=== PATIENT | male | born 2000 | race Caucasian/White ===

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

== ENCOUNTER 2022-05-20 13:04 | Inpatient (IN) ==
[2022-05-20] MEDS ORDERED: LACTATED RINGER'S 500 ML IV ONE (13:19)
[2022-05-20] MEDS: SODIUM CHLORIDE 0.9% 1000ML 1,000 ML IV SCH ×2 (13:41→14:42)
[2022-05-20] MEDS ORDERED: STAT IV Infusion **Titration per Protocol STA ×2 (14:24→16:41)
[2022-05-20] MEDS ORDERED: PIPERACILLIN/TAZOBACTAM 4.5 GM/120 ML BAG IV ONE (14:25)
[2022-05-20] MEDS ORDERED: LACTATED RINGER'S 1,000 ML IV ONE (14:27)
[2022-05-20 14:32] LABS: Basophils # (auto) 0.07 K/uL (0-0.2); Basophils % (auto) 0.3 %; Eosinophils # (auto) 0.26 K/uL (0-0.50); Eosinophils % (auto) 1.2 %; Hemoglobin 15.4 g/dl (14.0-18.0); Immature Granulocytes # (auto) 0.63 K/uL (0.00-0.02); Lymphocytes # (auto) 0.36 K/uL (1.2-3.4); Lymphocytes % (auto) 1.7 %; Mean Corpuscular Hemoglobin 32.5 pg (25.0-34.0); Mean Corpuscular Volume 92.8 fL (80.0-100.0); Monocytes # (auto) 1.45 K/uL (0.24-0.82); Monocytes % (auto) 6.9 %; Neutrophils # (auto) 18.33 K/uL (1.4-6.5); Neutrophils % (auto) 86.9 %; Platelet Count 166 K/uL (130-400); RDW Coefficient of Variation 12.9 % (11.5-14.5); RDW Standard Deviation 43.9 fL (36.4-46.3); Red Blood Count 4.74 M/uL (4.63-6.08)
[2022-05-20] MEDS: NOREPINEPHRINE/D5W 4 MG/250 ML PLCT IV SCH (14:32)
--- NOTE | 2022-05-20 14:50 | Emergency Department Note ---
Impression & Plan Septic shock, UTI (urinary tract infection), Fecal impaction, RAMON (acute kidney injury), Elevated troponin I level ED Provider Note Provider: Eduard Joyner MD DATE OF SERVICE: 05/20/2022 CHIEF COMPLAINT: Vomiting and diarrhea, weakness, cool extremities HISTORY OF PRESENT ILLNESS: Patient is a 21-year-old gentleman reports distant history as a toddler of constipation presenting with diarrhea starting last evening with persistent vomiting and being unable to sleep. Patient states he feels weak and was lying on his floor at home according to relative present. Patient denies syncope. Patient reports some rectal discomfort but denies other pain at this time including abdominal pain. Denies suspect food intake. Family members have had a bit of a head cold recently but he denies significant sore throat or nasal congestion. No fevers reported. REVIEW OF SYSTEMS: A total of 10 review of systems was obtained and negative except as stated above in the HPI. PAST MEDICAL HISTORY: As noted above MEDICATIONS: None reported SOCIAL HISTORY: Works at a restaurant PHYSICAL EXAM: GENERAL: alert and oriented on the stretcher appears fatigued. Head: normocephalic and atraumatic EYES: No injection, discharge or icterus. PERRL NECK: Trachea midline. Supple. ENT: Mucous membranes moist and slightly dusky. LUNGS: Airway patent. No retractions. Breath sounds clear HEART: Regular tachycardiac rate and rhythm. ABDOMEN: Soft and non-tender, without guarding or rebound. BACK: No bilateral flank tenderness. SKIN: Mildly cold and mottled distal extremities of the hands and feet. EXTREMITIES: Without swelling or tenderness NEUROLOGICAL: No focal deficits. No aphasia. No facial droop or slurred speech. EK bpm sinus tachycardia. No PVC or PAC. No acute ST segment elevation or depression with QTC 395. CONTINUOUS CARDIAC MONITORING: was ordered and showed a heart rate of 100s-140s bpm in sinus tachycardia Patient's laboratory studies and imaging reviewed. Differential includes Appendicitis, testicular torsion, infections, diverticulitis, UTI, obstruction, mesenteric ischemia, aortic pathology, inflammatory bowel disease, renal colic, PUD, pancreatitis, biliary pathology, hernia, volvulus, constipation, as well as other pathologies. IMPRESSION/MEDICAL DECISION MAKING: Patient describes gastroenteritis type symptoms. Some low blood pressure here as well as tachycardic with some possible evidence of decreased perfusion in the distal periphery of the extremities. Immediately 2 IVs were placed and IV fluid bolus was ordered. Question if he is significantly dehydrated. No fevers or trauma reported. Benign abdomen on exam without significant tenderness. Patient afebrile but having some rigors and feels quite cold. Warm drinks were transitioned to Courtney hugger. Later stopped as he developed a fever. Additional IV fluid was given and given his lack of response to hypotension with this was started on peripheral vasopressor -- Levophed drip. Given empiric broad- spectrum Zosyn. Blood work showed evidence of leukocytosis. Does not appear to be SVT but a sinus tachycardia. Question possible intra-abdominal process versus infectious process causing this. Procal >200. SPO2 is 100% and swelling with some dusky extremities and slight duskiness of the lips believe this is more due to perfusion than hypoxia. Doubt methemoglobinemia. Chest x-ray appears clear. COVID-negative. Chemistries finally returned showing mild hyponatremia however significant renal dysfunction with elevated lactate and low magnesium. AST and ALT mildly elevated. Troponin somewhat elevated likely secondary to demand rather than true ACS given the clin ical picture. CRP is elevated. CT scan was changed to noncontrast. Patient will receive 2 L of lactated Ringer's and 2 L of normal saline. Updated patient at bedside. And with his significant stool ball likely causing some stercoral proctitis likely contributing to his symptoms. No free air reported on CT. Blood pressure and heart rate did begin to prove here with the titration of pressor. Transferred to the ICU for further care and seen by the ICU attending here in the emergency department. Family and patient updated at bedside. Discussed with the gastroenterology team as well who recommended the patient have some disimpaction as well as enemas to help with his stool burden. Relayed to the ICU team as the patient was imminently being transferred there. DIAGNOSIS: Septic shock, acute UTI, acute renal failure, elevated lactate, elevated troponin DISPOSITION: Hospitalist will evaluate Patient was agreeable with this plan Critical Care I have personally spent 76 minutes of critical care time in the direct management of this patient. This includes bedside care, interpretation of diagnostic studies, and testing, discussion with consultants, patient, and family members, and other required patient management activities. These 76 minutes is in excess of all separately billable procedures. Past Med/Surg History Medical History Diarrhea No pertinent family history Surgical History No pertinent past surgical history Social History Smoking Status: Current every day smoker Tobacco Type: E-cigarettes / Vaping Hx Alcohol Use: No Preferred Language: Liberian Communication Ability: Effective Vending Machine Refiller Required: No Beliefs That Will Affect Care: None Current Living Situation: Family Feels Safe at Home: Yes Safety Concerns: Feels Safe At This Time Assistive Devices: None Allergies Allergies Allergy/AdvReac Type Severity Reaction Status Date / Time Sulfa (Sulfonamide Allergy Rash Verified 05/20/22 16:38 Antibiotics) Home Meds Home Medications Medication Instructions Recorded Confirmed polyethylene glycol 3350 17 gram 17 g PO DAILY PRN Constipation 05/20/22 05/20/22 oral powder packet (Miralax) Results & Data (ED) Vital Signs Vital Signs - 24 hr 05/20/22 13:08 05/20/22 13:42 05/20/22 16:10 Temperature 36.4 C L Temperature Source Oral Pulse Rate 136 H Pulse Rate [Finger] 112 H Pulse Rate from SpO2 Sensor Pulse Rhythm Regular Pulse Strength Normal Respiratory Rate 16 16 Respiratory Effort / Characteristics Non-Labored Spontaneous Respiratory Depth Normal Respiratory Pattern Regular Blood Pressure 78/46 L Blood Pressure [Right Arm] 88/35 L Blood Pressure Mean 56 Blood Pressure Mean [Right Arm] 52 Blood Pressure Position Sitting Pulse Oximetry 95 100 Oxygen Delivery Method Room Air Room Air Room Air Sepsis Recent Fever Within 48 Hours No Sepsis New/Unexplained Change in Mental Status No Sepsis Action Taken by Nursing No Action Required 05/20/22 16:26 05/20/22 16:43 05/20/22 14:40 Temperature 39.2 C H Temperature Source Oral Pulse Rate 131 H Pulse Rate [Finger] 119 H 107 H Pulse Rate from SpO2 Sensor 128 H Pulse Rhythm Pulse Strength Respiratory Rate 38 H 30 H 31 H Respiratory Effort / Characteristics Respiratory Depth Respiratory Pattern Blood Pressure Blood Pressure [Right Arm] 89/38 L 89/46 L Blood Pressure Mean Blood Pressure Mean [Right Arm] 55 60 Blood Pressure Position Pulse Oximetry 100 100 Oxygen Delivery Method Room Air Room Air Room Air Sepsis Recent Fever Within 48 Hours Sepsis New/Unexplained Change in Mental Status Sepsis Action Taken by Nursing 05/20/22 14:41 05/20/22 14:41 05/20/22 14:50 Temperature Temperature Source Pulse Rate 130 H Pulse Rate [Finger] Pulse Rate from SpO2 Sensor 129 H Pulse Rhythm Pulse Strength Respiratory Rate 33 H Respiratory Effort / Characteristics Respiratory Depth Respiratory Pattern Blood Pressure 93/36 L 84/37 L Blood Pressure [Right Arm] Blood Pressure Mean 55 52 Blood Pressure Mean [Right Arm] Blood Pressure Position Pulse Oximetry 100 Oxygen Delivery Method Room Air Room Air Room Air Sepsis Recent Fever Within 48 Hours Sepsis New/Unexplained Change in Mental Status Sepsis Action Taken by Nursing 05/20/22 14:50 05/20/22 14:58 05/20/22 14:58 Temperature Temperature Source Pulse Rate 126 H 130 H Pulse Rate [Finger] Pulse Rate from SpO2 Sensor 124 H 132 H Pulse Rhythm Pulse Strength Respiratory Rate 22 33 H Respiratory Effort / Characteristics Respiratory Depth Respiratory Pattern Blood Pressure 112/59 L Blood Pressure [Right Arm] Blood Pressure Mean 76 Blood Pressure Mean [Right Arm] Blood Pressure Position Pulse Oximetry 100 100 Oxygen Delivery Method Room Air Room Air Room Air Sepsis Recent Fever Within 48 Hours Sepsis New/Unexplained Change in Mental Status Sepsis Action Taken by Nursing 05/20/22 15:00 05/20/22 15:10 05/20/22 15:15 Temperature Temperature Source Pulse Rate 143 H 123 H Pulse Rate [Finger] Pulse Rate from SpO2 Sensor 141 H 123 H Pulse Rhythm Pulse Strength Respiratory Rate 37 H 29 H Respiratory Effort / Characteristics Respiratory Depth Respiratory Pattern Blood Pressure 76/36 L Blood Pressure [Right Arm] Blood Pressure Mean 49 Blood Pressure Mean [Right Arm] Blood Pressure Position Pulse Oximetry 98 100 Oxygen Delivery Method Room Air Room Air Room Air Sepsis Recent Fever Within 48 Hours Sepsis New/Unexplained Change in Mental Status Sepsis Action Taken by Nursing 05/20/22 15:15 05/20/22 15:18 05/20/22 15:18 Temperature Temperature Source Pulse Rate 121 H 129 H Pulse Rate [Finger] Pulse Rate from SpO2 Sensor 121 H 128 H Pulse Rhythm Pulse Strength Respiratory Rate 29 H 30 H Respiratory Effort / Characteristics Respiratory Depth Respiratory Pattern Blood Pressure 91/42 L Blood Pressure [Right Arm] Blood Pressure Mean 58 Blood Pressure Mean [Right Arm] Blood Pressure Position Pulse Oximetry 100 98 Oxygen Delivery Method Room Air Room Air Room Air Sepsis Recent Fever Within 48 Hours Sepsis New/Unexplained Change in Mental Status Sepsis Action Taken by Nursing 05/20/22 15:20 05/20/22 15:23 05/20/22 15:23 Temperature Temperature Source Pulse Rate 136 H 131 H Pulse Rate [Finger] Pulse Rate from SpO2 Sensor 133 H 130 H Pulse Rhythm Pulse Strength Respiratory Rate 19 24 Respiratory Effort / Characteristics Respiratory Depth Respiratory Pattern Blood Pressure 81/39 L Blood Pressure [Right Arm] Blood Pressure Mean 53 Blood Pressure Mean [Right Arm] Blood Pressure Position Pulse Oximetry 100 100 Oxygen Delivery Method Room Air Room Air Room Air Sepsis Recent Fever Within 48 Hours Sepsis New/Unexplained Change in Mental Status Sepsis Action Taken by Nursing 05/20/22 15:30 05/20/22 15:30 05/20/22 15:57 Temperature Temperature Source Pulse Rate 127 H 122 H Pulse Rate [Finger] Pulse Rate from SpO2 Sensor 128 H Pulse Rhythm Pulse Strength Respiratory Rate 26 H 33 H Respiratory Effort / Characteristics Respiratory Depth Respiratory Pattern Blood Pressure 70/40 L Blood Pressure [Right Arm] Blood Pressure Mean 50 Blood Pressure Mean [Right Arm] Blood Pressure Position Pulse Oximetry 100 Oxygen Delivery Method Room Air Room Air Room Air Sepsis Recent Fever Within 48 Hours Sepsis New/Unexplained Change in Mental Status Sepsis Action Taken by Nursing 05/20/22 16:00 05/20/22 16:05 05/20/22 16:05 Temperature Temperature Source Pulse Rate 124 H 121 H Pulse Rate [Finger] Pulse Rate from SpO2 Sensor 122 H Pulse Rhythm Pulse Strength Respiratory Rate 26 H 33 H Respiratory Effort / Characteristics Respiratory Depth Respiratory Pattern Blood Pressure 88/35 L Blood Pressure [Right Arm] Blood Pressure Mean 52 Blood Pressure Mean [Right Arm] Blood Pressure Position Pulse Oximetry 99 Oxygen Delivery Method Room Air Room Air Room Air Sepsis Recent Fever Within 48 Hours Sepsis New/Unexplained Change in Mental Status Sepsis Action Taken by Nursing 05/20/22 16:10 05/20/22 16:15 05/20/22 16:15 Temperature Temperature Source Pulse Rate 111 H 120 H Pulse Rate [Finger] Pulse Rate from SpO2 Sensor 111 H 119 H Pulse Rhythm Pulse Strength Respiratory Rate 30 H 36 H Respiratory Effort / Characteristics Respiratory Depth Respiratory Pattern Blood Pressure 90/50 L Blood Pressure [Right Arm] Blood Pressure Mean 63 Blood Pressure Mean [Right Arm] Blood Pressure Position Pulse Oximetry 100 99 Oxygen Delivery Method Room Air Room Air Room Air Sepsis Recent Fever Within 48 Hours Sepsis New/Unexplained Change in Mental Status Sepsis Action Taken by Nursing 05/20/22 16:20 05/20/22 16:25 05/20/22 16:25 Temperature Temperature Source Pulse Rate 117 H 118 H Pulse Rate [Finger] Pulse Rate from SpO2 Sensor 117 H 118 H Pulse Rhythm Pulse Strength Respiratory Rate 15 28 H Respiratory Effort / Characteristics Respiratory Depth Respiratory Pattern Blood Pressure 89/38 L Blood Pressure [Right Arm] Blood Pressure Mean 55 Blood Pressure Mean [Right Arm] Blood Pressure Position Pulse Oximetry 100 100 Oxygen Delivery Method Room Air Room Air Room Air Sepsis Recent Fever Within 48 Hours Sepsis New/Unexplained Change in Mental Status Sepsis Action Taken by Nursing 05/20/22 16:28 05/20/22 16:28 05/20/22 16:30 Temperature Temperature Source Pulse Rate 119 H Pulse Rate [Finger] Pulse Rate from SpO2 Sensor 117 H Pulse Rhythm Pulse Strength Respiratory Rate 23 Respiratory Effort / Characteristics Respiratory Depth Respiratory Pattern Blood Pressure 93/44 L 87/43 L Blood Pressure [Right Arm] Blood Pressure Mean 60 57 Blood Pressure Mean [Right Arm] Blood Pressure Position Pulse Oximetry 100 Oxygen Delivery Method Room Air Room Air Room Air Sepsis Recent Fever Within 48 Hours Sepsis New/Unexplained Change in Mental Status Sepsis Action Taken by Nursing 05/20/22 16:30 05/20/22 16:40 05/20/22 16:42 Temperature Temperature Source Pulse Rate 120 H 120 H 112 H Pulse Rate [Finger] Pulse Rate from SpO2 Sensor 119 H 120 H 111 H Pulse Rhythm Pulse Strength Respiratory Rate 26 H 35 H 34 H Respiratory Effort / Characteristics Respiratory Depth Respiratory Pattern Blood Pressure Blood Pressure [Right Arm] Blood Pressure Mean Blood Pressure Mean [Right Arm] Blood Pressure Position Pulse Oximetry 100 100 100 Oxygen Delivery Method Room Air Room Air Room Air Sepsis Recent Fever Within 48 Hours Sepsis New/Unexplained Change in Mental Status Sepsis Action Taken by Nursing 05/20/22 16:42 05/20/22 16:45 05/20/22 16:45 Temperature Temperature Source Pulse Rate 107 H Pulse Rate [Finger] Pulse Rate from SpO2 Sensor 108 H Pulse Rhythm Pulse Strength Respiratory Rate 31 H Respiratory Effort / Characteristics Respiratory Depth Respiratory Pattern Blood Pressure 89/46 L 96/52 L Blood Pressure [Right Arm] Blood Pressure Mean 60 66 Blood Pressure Mean [Right Arm] Blood Pressure Position Pulse Oximetry 100 Oxygen Delivery Method Room Air Room Air Room Air Sepsis Recent Fever Within 48 Hours Sepsis New/Unexplained Change in Mental Status Sepsis Action Taken by Nursing 05/20/22 16:50 Temperature Temperature Source Pulse Rate 107 H Pulse Rate [Finger] Pulse Rate from SpO2 Sensor 107 H Pulse Rhythm Pulse Strength Respiratory Rate 28 H Respiratory Effort / Characteristics Respiratory Depth Respiratory Pattern Blood Pressure Blood Pressure [Right Arm] Blood Pressure Mean Blood Pressure Mean [Right Arm] Blood Pressure Position Pulse Oximetry 100 Oxygen Delivery Method Room Air Sepsis Recent Fever Within 48 Hours Sepsis New/Unexplained Change in Mental Status Sepsis Action Taken by Nursing Laboratory Data Result diagrams: 05/20/22 14:21 05/20/22 14:21 Lab Results 05/20/22 05/20/22 05/20/22 Range/Units 12:35 14:21 14:21 WBC 21.10 H (4.8-10.8) K/ul RBC 4.74 (4.63-6.08) M/uL Hgb 15.4 (14.0-18.0) g/dl Hct 44.0 (40.1-51.0) % MCV 92.8 (80.0-100.0) fL MCH 32.5 (25.0-34.0) pg MCHC 35.0 (32.0-36.0) g/dL RDW Std Deviation 43.9 (36.4-46.3) fL RDW Coeff of Leena 12.9 (11.5-14.5) % Plt Count 166 (130-400) K/uL MPV 11.0 (9.4-12.4) fL Immature Gran % (Auto) 3.0 % Neut % (Auto) 86.9 % Lymph % (Auto) 1.7 % Bath % (Auto) 6.9 % Eos % (Auto) 1.2 % Baso % (Auto) 0.3 % Neut # (Auto) 18.33 H (1.4-6.5) K/uL Lymph # (Auto) 0.36 L (1.2-3.4) K/uL Bath # (Auto) 1.45 H (0.24-0.82) K/uL Eos # (Auto) 0.26 (0-0.50) K/uL Baso # (Auto) 0.07 (0-0.2) K/uL Immature Gran # (Auto) 0.63 H (0.00-0.02) K/uL ESR (0-15) mm/hr VBG pH (7.36-7.41) VBG pCO2 (38-50) mmHg VBG pO2 mmHg VBG HCO3 mmol/L VBG O2 Saturation % VBG Base Excess mEq/L Sodium 133 L (136-145) mmol/L Potassium 4.8 (3.5-5.1) mmol/L Chloride 101 (98-107) mmol/L Carbon Dioxide 23 (21-32) mmol/L Anion Gap 9 (3-11) BUN 38 H (6-23) mg/dl Creatinine 2.61 H (0.6-1.4) mg/dl Est Cr Clr Drug Dosing 36.5 ml/min Est GFR ( Amer) 39.2 ml/min Est GFR (Non-Af Amer) 33.8 ml/min BUN/Creatinine Ratio 14.6 (10-20) Glucose 110 H (70-99(Fasting)) mg/dl Lactate (0.4-2.0) mmol/L Calcium 7.7 L (8.5-10.1) mg/dl Magnesium 1.4 L (1.7-2.4) mg/dl Total Bilirubin 3.5 H (0.2-1.0) mg/dl Direct Bilirubin 1.0 H (0-0.2) mg/dl AST 132 H (13-39) U/L ALT 103 H (7-52) U/L Alkaline Phosphatase 68 (34-104) U/L Troponin I High Sens 134.7 H* (0-20) pg/ml C-Reactive Protein 8.37 H (0-0.5) mg/dl Total Protein 5.6 L (6.0-8.3) gm/dl Albumin 3.4 (3.4-5.0) gm/dl Lipase (11-82) U/L Procalcitonin (0-0.5) ng/ml Random Cortisol mcg/dl Urine Color Urine Appearance (Clear) Urine pH (4.5-7.5) Ur Specific [place] (1.000-1.030) Urine Protein (Negative) Urine Glucose (UA) (Negative) Urine Ketones (Negative) Urine Blood (Negative) Urine Nitrite (Negative) Urine Bilirubin (Negative) Urine Urobilinogen (Negative) Ur Leukocyte Esterase (Negative) Urine WBC (Auto) (0-5) /hpf Urine RBC (Auto) (0-4) /hpf U Hyaline Cast (Auto) (0-5) /lpf U Epithel Cells (Auto) (0-5) /lpf Urine Bacteria (Auto) (Negative) SARS-CoV-2, RNA, NAAT NEGATIVE (NEGATIVE) 05/20/22 05/20/22 05/20/22 Range/Units 14:21 14:21 14:21 WBC (4.8-10.8) K/ul RBC (4.63-6.08) M/uL Hgb (14.0-18.0) g/dl Hct (40.1-51.0) % MCV (80.0-100.0) fL MCH (25.0-34.0) pg MCHC (32.0-36.0) g/dL RDW Std Deviation (36.4-46.3) fL RDW Coeff of Leena (11.5-14.5) % Plt Count (130-400) K/uL MPV (9.4-12.4) fL Immature Gran % (Auto) % Neut % (Auto) % Lymph % (Auto) % Bath % (Auto) % Eos % (Auto) % Baso % (Auto) % Neut # (Auto) (1.4-6.5) K/uL Lymph # (Auto) (1.2-3.4) K/uL Bath # (Auto) (0.24-0.82) K/uL Eos # (Auto) (0-0.50) K/uL Baso # (Auto) (0-0.2) K/uL Immature Gran # (Auto) (0.00-0.02) K/uL ESR < 1 (0-15) mm/hr VBG pH (7.36-7.41) VBG pCO2 (38-50) mmHg VBG pO2 mmHg VBG HCO3 mmol/L VBG O2 Saturation % VBG Base Excess mEq/L Sodium (136-145) mmol/L Potassium (3.5-5.1) mmol/L Chloride (98-107) mmol/L Carbon Dioxide (21-32) mmol/L Anion Gap (3-11) BUN (6-23) mg/dl Creatinine (0.6-1.4) mg/dl Est Cr Clr Drug Dosing ml/min Est GFR ( Amer) ml/min Est GFR (Non-Af Amer) ml/min BUN/Creatinine Ratio (10-20) Glucose (70-99(Fasting)) mg/dl Lactate 3.5 H* (0.4-2.0) mmol/L Calcium (8.5-10.1) mg/dl Magnesium (1.7-2.4) mg/dl Total Bilirubin (0.2-1.0) mg/dl Direct Bilirubin (0-0.2) mg/dl AST (13-39) U/L ALT (7-52) U/L Alkaline Phosphatase (34-104) U/L Troponin I High Sens (0-20) pg/ml C-Reactive Protein (0-0.5) mg/dl Total Protein (6.0-8.3) gm/dl Albumin (3.4-5.0) gm/dl Lipase (11-82) U/L Procalcitonin > 200.00 H (0-0.5) ng/ml Random Cortisol mcg/dl Urine Color Urine Appearance (Clear) Urine pH (4.5-7.5) Ur Specific [place] (1.000-1.030) Urine Protein (Negative) Urine Glucose (UA) (Negative) Urine Ketones (Negative) Urine Blood (Negative) Urine Nitrite (Negative) Urine Bilirubin (Negative) Urine Urobilinogen (Negative) Ur Leukocyte Esterase (Negative) Urine WBC (Auto) (0-5) /hpf Urine RBC (Auto) (0-4) /hpf U Hyaline Cast (Auto) (0-5) /lpf U Epithel Cells (Auto) (0-5) /lpf Urine Bacteria (Auto) (Negative) SARS-CoV-2, RNA, NAAT (NEGATIVE) 05/20/22 05/20/22 05/20/22 Range/Units 14:21 15:00 16:26 WBC (4.8-10.8) K/ul RBC (4.63-6.08) M/uL Hgb (14.0-18.0) g/dl Hct (40.1-51.0) % MCV (80.0-100.0) fL MCH (25.0-34.0) pg MCHC (32.0-36.0) g/dL RDW Std Deviation (36.4-46.3) fL RDW Coeff of Leena (11.5-14.5) % Plt Count (130-400) K/uL MPV (9.4-12.4) fL Immature Gran % (Auto) % Neut % (Auto) % Lymph % (Auto) % Bath % (Auto) % Eos % (Auto) % Baso % (Auto) % Neut # (Auto) (1.4-6.5) K/uL Lymph # (Auto) (1.2-3.4) K/uL Bath # (Auto) (0.24-0.82) K/uL Eos # (Auto) (0-0.50) K/uL Baso # (Auto) (0-0.2) K/uL Immature Gran # (Auto) (0.00-0.02) K/uL ESR (0-15) mm/hr VBG pH (7.36-7.41) VBG pCO2 (38-50) mmHg VBG pO2 mmHg VBG HCO3 mmol/L VBG O2 Saturation % VBG Base Excess mEq/L Sodium (136-145) mmol/L Potassium (3.5-5.1) mmol/L Chloride (98-107) mmol/L Carbon Dioxide (21-32) mmol/L Anion Gap (3-11) BUN (6-23) mg/dl Creatinine (0.6-1.4) mg/dl Est Cr Clr Drug Dosing ml/min Est GFR ( Amer) ml/min Est GFR (Non-Af Amer) ml/min BUN/Creatinine Ratio (10-20) Glucose (70-99(Fasting)) mg/dl Lactate 3.0 H* (0.4-2.0) mmol/L Calcium (8.5-10.1) mg/dl Magnesium (1.7-2.4) mg/dl Total Bilirubin (0.2-1.0) mg/dl Direct Bilirubin (0-0.2) mg/dl AST (13-39) U/L ALT (7-52) U/L Alkaline Phosphatase (34-104) U/L Troponin I High Sens (0-20) pg/ml C-Reactive Protein (0-0.5) mg/dl Total Protein (6.0-8.3) gm/dl Albumin (3.4-5.0) gm/dl Lipase 11 (11-82) U/L Procalcitonin (0-0.5) ng/ml Random Cortisol mcg/dl Urine Color [place] Urine Appearance Cloudy A (Clear) Urine pH 5.0 (4.5-7.5) Ur Specific [place] 1.015 (1.000-1.030) Urine Protein 1+ H (Negative) Urine Glucose (UA) Negative (Negative) Urine Ketones Negative (Negative) Urine Blood Negative (Negative) Urine Nitrite Positive A (Negative) Urine Bilirubin 1+ H (Negative) Urine Urobilinogen Negative (Negative) Ur Leukocyte Esterase 2+ H (Negative) Urine WBC (Auto) 10-30 H (0-5) /hpf Urine RBC (Auto) 0-4 (0-4) /hpf U Hyaline Cast (Auto) 10-30 H (0-5) /lpf U Epithel Cells (Auto) 5-10 H (0-5) /lpf Urine Bacteria (Auto) 4+ H (Negative) SARS-CoV-2, RNA, NAAT (NEGATIVE) 05/20/22 05/20/22 Range/Units 16:26 16:27 WBC (4.8-10.8) K/ul RBC (4.63-6.08) M/uL Hgb (14.0-18.0) g/dl Hct (40.1-51.0) % MCV (80.0-100.0) fL MCH (25.0-34.0) pg MCHC (32.0-36.0) g/dL RDW Std Deviation (36.4-46.3) fL RDW Coeff of Leena (11.5-14.5) % Plt Count (130-400) K/uL MPV (9.4-12.4) fL Immature Gran % (Auto) % Neut % (Auto) % Lymph % (Auto) % Bath % (Auto) % Eos % (Auto) % Baso % (Auto) % Neut # (Auto) (1.4-6.5) K/uL Lymph # (Auto) (1.2-3.4) K/uL Bath # (Auto) (0.24-0.82) K/uL Eos # (Auto) (0-0.50) K/uL Baso # (Auto) (0-0.2) K/uL Immature Gran # (Auto) (0.00-0.02) K/uL ESR (0-15) mm/hr VBG pH 7.32 L (7.36-7.41) VBG pCO2 42 (38-50) mmHg VBG pO2 23 mmHg VBG HCO3 22 mmol/L VBG O2 Saturation < 60.0 % VBG Base Excess -4.3 mEq/L Sodium (136-145) mmol/L Potassium (3.5-5.1) mmol/L Chloride (98-107) mmol/L Carbon Dioxide (21-32) mmol/L Anion Gap (3-11) BUN (6-23) mg/dl Creatinine (0.6-1.4) mg/dl Est Cr Clr Drug Dosing ml/min Est GFR ( Amer) ml/min Est GFR (Non-Af Amer) ml/min BUN/Creatinine Ratio (10-20) Glucose (70-99(Fasting)) mg/dl Lactate (0.4-2.0) mmol/L Calcium (8.5-10.1) mg/dl Magnesium (1.7-2.4) mg/dl Total Bilirubin (0.2-1.0) mg/dl Direct Bilirubin (0-0.2) mg/dl AST (13-39) U/L ALT (7-52) U/L Alkaline Phosphatase (34-104) U/L Troponin I High Sens (0-20) pg/ml C-Reactive Protein (0-0.5) mg/dl Total Protein (6.0-8.3) gm/dl Albumin (3.4-5.0) gm/dl Lipase (11-82) U/L Procalcitonin (0-0.5) ng/ml Random Cortisol 58.44 mcg/dl Urine Color Urine Appearance (Clear) Urine pH (4.5-7.5) Ur Specific [place] (1.000-1.030) Urine Protein (Negative) Urine Glucose (UA) (Negative) Urine Ketones (Negative) Urine Blood (Negative) Urine Nitrite (Negative) Urine Bilirubin (Negative) Urine Urobilinogen (Negative) Ur Leukocyte Esterase (Negative) Urine WBC (Auto) (0-5) /hpf Urine RBC (Auto) (0-4) /hpf U Hyaline Cast (Auto) (0-5) /lpf U Epithel Cells (Auto) (0-5) /lpf Urine Bacteria (Auto) (Negative) SARS-CoV-2, RNA, NAAT (NEGATIVE) Administered Medications Norepinephrine Bitartrate (Levophed/D5w) 4 mg in 250 mls @ 10.706 mls/hr IV .[id number] CARMINE; Protocol Stop: 06/19/22 14:29 Last Titration: 05/20/22 18:51 Dose: 0.08 mcg/kg/min, 17.1 mls/hr Documented By: RAJINDER Co-signed By: JOSHUA Titration: 05/20/22 18:42 Dose: 0.08 mcg/kg/min, 17.1 mls/hr Documented By: Titration: 05/20/22 16:43 Dose: 0.14 mcg/kg/min, 30 mls/hr Documented By: Titration: 05/20/22 16:25 Dose: 0.12 mcg/kg/min, 25.7 mls/hr Documented By: Titration: 05/20/22 15:33 Dose: 0.1 mcg/kg/min, 21.4 mls/hr Documented By: Titration: 05/20/22 15:19 Dose: 0.08 mcg/kg/min, 17.1 mls/hr Documented By: Admin: 05/20/22 14:32 Dose: 0.05 mcg/kg/min, 10.7 mls/hr Documented By: SILVIA Co-signed By: KAROL Vasopressin 20 units/ Sodium (Chloride) 101 mls @ 12.12 mls/hr IV .[id number] CARMINE Stop: 06/19/22 16:44 Last Infusion: 05/20/22 18:51 Dose: 0.04 unit/min, 12.1 mls/hr Documented By: RAJINDER Co-signed By: JOSHUA Admin: 05/20/22 17:49 Dose: 0.04 unit/min, 12.1 mls/hr Documented By: LEIGHTON Co-signed By: SILVIA Acetaminophen (Ofirmev) 65 mls @ 260 mls/hr IV Q6H PRN PRN Reason: Fever Stop: 05/23/22 17:14 Last Infusion: 05/20/22 18:09 Dose: 0 mls/hr Documented By: Admin: 05/20/22 17:46 Dose: 260 mls/hr Documented By: LEIGHTON Parenteral Electrolytes (Normosol-R) 500 mls @ 125 mls/hr IV .Q4H CARMINE Stop: 06/19/22 18:44 Last Admin: 05/20/22 19:00 Dose: 125 mls/hr Documented By: JOSHUA Discontinued Medications Hydrocortisone Sodium Succinate (Hydrocortisone Sod Succinate 100 Mg/2 Ml Vial) 100 mg IV NOW STA Stop: 05/20/22 15:39 Last Admin: 05/20/22 16:20 Dose: 100 mg Documented By: LEIGHTON Sodium Chloride (Nss 1000ml) 1,000 mls @ 999 mls/hr IV .Q1H1M CARMINE Stop: 05/20/22 15:30 Last Infusion: 05/20/22 16:10 Dose: 0 mls/hr Documented By: Admin: 05/20/22 14:42 Dose: 999 mls/hr Documented By: Infusion: 05/20/22 14:42 Dose: 0 mls/hr Documented By: Admin: 05/20/22 13:41 Dose: 999 mls/hr Documented By: SILVIA Lactated Ringer's (Lr) 500 mls @ 999 mls/hr IV .Q31M ONE Stop: 05/20/22 13:49 Last Infusion: 05/20/22 16:10 Dose: 0 mls/hr Documented By: Admin: 05/20/22 15:37 Dose: 999 mls/hr Documented By: SILVIA Piperacillin Sod/Tazobactam Sod (Zosyn) 4.5 gm in 120 mls @ 240 mls/hr IV NOW O NE Stop: 05/20/22 14:54 Last Infusion: 05/20/22 15:05 Dose: 0 mls/hr Documented By: Admin: 05/20/22 14:34 Dose: 240 mls/hr Documented By: SILVIA Lactated Ringer's (Lr) 1,000 mls @ 999 mls/hr IV .Q1H1M ONE Stop: 05/20/22 15:27 Last Infusion: 05/20/22 16:44 Dose: 0 mls/hr Documented By: Admin: 05/20/22 15:37 Dose: 999 mls/hr Documented By: SILVIA Parenteral Electrolytes (Normosol-R) 1,000 mls @ 999 mls/hr IV .Q1H1M ONE Stop: 05/20/22 17:27 Last Infusion: 05/20/22 17:46 Dose: 0 mls/hr Documented By: Admin: 05/20/22 16:43 Dose: 999 mls/hr Documented By: LEIGHTON Miscellaneous (Stat Iv Infusion Titration Per Protocol) 1 each N/A NOW STA Stop: 05/20/22 14:25 Last Admin: 05/20/22 14:39 Dose: Not Given Documented By: SILVIA Imaging Data Radiologist's Impression: Chest X-Ray 05/20/22 13:17 XR chest 1V portable HISTORY: Weakness. Tachycardia. COMPARISON: None. FINDINGS: No pneumothorax. No pleural effusions. The heart is normal in size. The trachea is midline. No acute fractures within the visualized osseous structures. The left lung is clear. Mild interstitial thickening within the right lung base. IMPRESSION: Mild interstitial thickening at the right lung base which could be due to the AP portable technique. A low-grade interstitial pneumonitis is not excluded. This will be better assessed on the same day abdomen and pelvis CT. ACT 112: Negative or not required by law. Electronically signed by: Dalton Drake M.D. 05/20/2022 2:58 PM Abdomen/Pelvis CT 05/20/22 15:[address] WITHOUT CONTRAST CT DOSE: 280.70 mGy.cm HISTORY: Acute nausea with vomiting and hypotension. Elevated LFTs v/d, hypotension, elev wbc, lfts TECHNIQUE: Multiaxial CT images of the abdomen and pelvis were performed without contrast. A dose lowering technique was utilized adhering to the principles of ALARA. COMPARISON STUDY: Chest radiograph of same day FINDINGS: Mild dependent subsegmental bibasilar atelectasis. No pneumatosis or pneumoperitoneum identified. The unenhanced spleen, pancreas and adrenal glands are unremarkable. Hyperdense material is noted within the gallbladder lumen. Equivocal gallbladder wall thickening without distention. The unenhanced liver is within normal limits. Mild bilateral hydroureter ureteronephrosis. No renal or ureteral calculi. Anteriorly displaced urinary bladder with circumferential wall thickening. The prostate measures within the upper limits of normal in size. Aorta and IVC are unremarkable. No lymphadenopathy identified. There is a large stool ball within the rectum measuring over 15 cm in length. The rectum is dilated and distended measuring up to 11 cm transversely. Circumferential wall thickening of the sigmoid and rectum with perirectal inflammatory stranding. Colonic fecal retention. There is a subcentimeter appendicolith present. No appendiceal dilation identified to suggest acute appendicitis. Scattered small bowel air-fluid levels within nondilated dilated loops are likely physiologic. Unremarkable soft tissues. Benign cystic structure of the L5 vertebral body. No acute fracture. IMPRESSION: 1. Constipation with marked fecal retention of the rectum resulting in associated stercoral proctitis. 2. The urinary bladder is displaced anteriorly. Circumferential wall thickening may represent cystitis. Correlate with urinalysis. 3. Mild bilateral hydronephrosis. No urolith. 4. Subcentimeter appendicolith is present. No CT evidence of acute appendicitis. 5. Hyperattenuating material within the gallbladder with equivocal gallbladder wall thickening. Findings could be correlated with ultrasound. 6. Additional findings as above. ACT 112: Negative or not required by law. The above report was generated using voice recognition software. It may contain grammatical, syntax or spelling errors. Electronically signed by: Elvin Terrell M.D. 05/20/2022 4:14 PM Discharge Plan Visit Data Chief Complaint: Abdominal Pain Stated Complaint: ABD PAIN, DIARRHEA ED Provider: Eduard Joyner Discharge Problem: Septic shock, UTI (urinary tract infection), Fecal impaction, RAMON (acute kidney injury), Elevated troponin I level Patient Disposition: Being Evaluated by Hospitalist Condition: Critical Discharge Instructions Interventions: ED Discharge Assessment Last Done: 05/20/22 18:02
--- NOTE | 2022-05-20 14:59 | XRay Report ---
XR chest 1V portable HISTORY: Weakness. Tachycardia. COMPARISON: None. FINDINGS: No pneumothorax. No pleural effusions. The heart is normal in size. The trachea is midline. No acute fractures within the visualized osseous structures. The left lung is clear. Mild interstiti al thickening within the right lung base. IMPRESSION: Mild interstitial thickening at the right lung base which could be due to the AP portable technique. A low-grade interstitial pneumonitis is not excluded. This will be better assessed on the same day ab domen and pelvis CT. ACT 112: Negative or not required by law. Electronically signed by: Dalton Drake M.D. 05/20/2022 2:58 PM
[2022-05-20 15:06] LABS: Albumin Level 3.4 gm/dl (3.4-5.0); BUN Creatinine Ratio 14.6 (10-20); Bilirubin,Total 3.5 mg/dl (0.2-1.0); C Reactive Protein 8.37 mg/dl (0-0.5); Calcium 7.7 mg/dl (8.5-10.1); Creatinine Clr Calc Pharmacy 36.5 ml/min; Est GFR (African American) 39.2 ml/min; Est GFR (Non-African American) 33.8 ml/min; Magnesium 1.4 mg/dl (1.7-2.4); Potassium 4.8 mmol/L (3.5-5.1); Total Protein 5.6 gm/dl (6.0-8.3)
[2022-05-20 15:16] LABS: Troponin I High Sensitivity 134.7 pg/ml (0-20)
[2022-05-20 15:29] LABS: Appearance Urine Cloudy (Clear); Bacteria Urine Automated 4+ (Negative); Blood Urine Negative (Negative); Color Urine Orange; Glucose Urine UA Negative (Negative); Ketones Urine Negative (Negative); Leukocyte Esterase Urine 2+ (Negative); Nitrite Urine Positive (Negative); Protein Urine 1+ (Negative); RBC Urine Automated 0-4 /hpf (0-4); Specific Gravity Urine 1.015 (1.000-1.030); Urobilinogen Urine Negative (Negative)
[2022-05-20] MEDS ORDERED: HYDROCORTISONE SOD SUCCINATE 100 MG/2 ML VIAL IV STA (15:38)
[2022-05-20 15:40] LABS: Bilirubin Urine 1+ (Negative)
--- NOTE | 2022-05-20 16:15 | CT Scan Report ---
ABDOMEN AND PELVIS CT WITHOUT CONTRAST CT DOSE: 280.70 mGy.cm HISTORY: Acute nausea with vomiting and hypotension. Elevated LFTs v/d, hypotension, elev wbc, lfts TECHNIQUE: Multiaxial CT images of the abdomen and pelvis were performed without contrast. A dose lo wering technique was utilized adhering to the principles of ALARA. COMPARISON STUDY: Chest radiograph of same day FINDINGS: Mild dependent subsegmental bibasilar atelectasis. No pneumatosis or pneumoperitoneum ident ified. The unenhanced spleen, pancreas and adrenal glands are unremarkable. Hyperdense material is no connie within the gallbladder lumen. Equivocal gallbladder wall thickening without distention. The unenh anced liver is within normal limits. Mild bilateral hydroureter ureteronephrosis. No renal or ureteral calculi. Anteriorly displaced urina ry bladder with circumferential wall thickening. The prostate measures within the upper limits of nor mal in size. Aorta and IVC are unremarkable. No lymphadenopathy identified. There is a large stool ball within the rectum measuring over 15 cm in length. The rectum is dilated a nd distended measuring up to 11 cm transversely. Circumferential wall thickening of the sigmoid and r ectum with perirectal inflammatory stranding. Colonic fecal retention. There is a subcentimeter appen dicolith present. No appendiceal dilation identified to suggest acute appendicitis. Scattered small b owel air-fluid levels within nondilated dilated loops are likely physiologic. Unremarkable soft tissu es. Benign cystic structure of the L5 vertebral body. No acute fracture. IMPRESSION: 1. Constipation with marked fecal retention of the rectum resulting in associated stercoral proctitis . 2. The urinary bladder is displaced anteriorly. Circumferential wall thickening may represent cystiti s. Correlate with urinalysis. 3. Mild bilateral hydronephrosis. No urolith. 4. Subcentimeter appendicolith is present. No CT evidence of acute appendicitis. 5. Hyperattenuating material within the gallbladder with equivocal gallbladder wall thickening. Findi ngs could be correlated with ultrasound. 6. Additional findings as above. ACT 112: Negative or not required by law. The above report was generated using voice recognition software. It may contain grammatical, syntax o r spelling errors. Electronically signed by: Elvin Terrell M.D. 05/20/2022 4:14 PM
[2022-05-20] MEDS ORDERED: NORMOSOL-R 1,000 ML IV ONE (16:27)
--- NOTE | 2022-05-20 16:28 | Electrocardiogram Report ---
Test Reason : Blood Pressure : / mmHG Vent. Rate : 123 BPM Atrial Rate : 123 BPM P-R Int : 116 ms QRS Dur : 066 ms QT Int : 276 ms P-R-T Axes : 054 063 057 degrees QTc Int : 395 ms Sinus tachycardia Possible Left atrial enlargement Borderline ECG When compared with ECG of 08-JUN-2020 17:38, No significant change was found Confirmed by Cordell aPul ([id number]) on 05/20/2022 4:28:12 PM Referred By: Confirmed By:Cordell Paul
[2022-05-20 16:39] LABS: Base Excess VBG -4.3 mEq/L; HCO3 VBG 22 mmol/L; Oxygen Saturation VBG < 60.0 %; PCO2 VBG 42 mmHg (38-50); PO2 VBG 23 mmHg; pH VBG 7.32 (7.36-7.41)
[2022-05-20] MEDS ORDERED: ACETAMINOPHEN 10MG/ML CUSTOM DOSING (PED, LOW WT) IV PRN (16:42)
--- NOTE | 2022-05-20 17:15 | History & Physical Report ---
Date of Service May 20, 2022 Assessment & Plan (1) Sepsis: (2) Shock circulatory: Plan: Patient is 21 y/o M with PMH ADHD, chronic constipation presented to ER with c/o N/V/D x 1 day. Patient states yesterday started with nausea, vomiting and diarrhea. Denies any vomiting today. Today lethargic and weak, chills. In ER patient hypotensive and tachycardic and was reported to be mottled. Was given 2L LR and 2L NSS with SBPs reported down to 50s and was started on Levophed with SBPs up to 90's. WBC 21, lactate: 3.5, procalcitonin > 200, UA consistent with possible UTI. Negative SARS-CoV-2 NAAT. CXR: Mild interstitial thickening RLL. CT abdomen/pelvis: Constipation with marked fecal retention of rectum with associated stercoral proctitis. Urinary bladder wall thickening. Mild bilateral hydronephrosis, no urolith. No CT evidence of acute appendicitis. Hyperattenuating material within the gallbladder with equivocal gallbladder wall thickening. In ER patient BP improving on Levophed In ER given Zosyn Blood cultures, urine culture pending DDX: UTI, cholecystitis, gastroenteritis, bacteremia Urine drug screen pending Repeat lactate: 3 Patient admitted to ICU ABG pending Further management per machine long goods helper (3) RAMON (acute kidney injury): Plan: BUN: 38, Cr: 2.6 Monitor renal function, avoid nephrotoxic agents when possible (4) Elevated LFTs: Plan: T bili: 3.5, ALT: 132, AST: 103, alk phos: 68. Lipase: 11 May need to consider additional ultrasound gallbladder (5) Elevated troponin I level: Plan: High-sensitivity troponin: 134.7 EKG: Sinus tachycardia, no acute ST elevation noted May be secondary to demand (6) Fecal impaction: Plan: History of chronic constipation CT abdomen pelvis: Significant constipation with fecal retention of rectum ?Reported diarrhea may be secondary to overflow from constipation ER provider reached out to on-call GI who had recommended digital disimpaction and enema DVT Prophylaxis Heparin SQ Full Code as per discussion with pt Reports does not have PCP for routine care Pt was seen and care coordinated with Dr Biswas. See addendum History of Present Illness Chief Complaint: Nausea, diarrhea Primary Care Provider: NO PCP Patient is 21 y/o M with PMH ADHD, chronic constipation presented to ER with c/o N/V/D x 1 day. Patient states yesterday started with nausea, vomiting and diarrhea. Denies any vomiting today. Patient reports was feeling lethargic and weak. His mother is in room and reports that today he was lying on bathroom floor and looked ill so he was brought to ER. Patient reports history of chronic constipation and sometimes uses MiraLAX as needed. He reports his last BM prior to onset of illness yesterday was 2 to 3 days ago. Patient reports feeling cold and having chills. Did not take his temperature at home. Denies hematemesis, melena, hematochezia. Reports some diffuse abdominal discomfort. Patient states couple weeks ago had a cough but has resolved. Denies fever/chills, diaphoresis, VIERA, syncope, vision changes, neck pain, CP, SOB, orthopnea, palpitations, sore throat, choking, otalgia, rhinorrhea, extremity edema, rashes, urinary symptoms. Patient denies drug or alcohol use. Denies recent tr ryanne, ill contacts. In ER patient hypotensive and tachycardic and was reported to be mottled. Was given 2L LR and 2L NSS with SBPs reported down to 50s and was started on L evophed with SBPs up to 90's. WBC 21, lactate: 3.5, procalcitonin > 200, UA consistent with possible UTI. Negative SARS-CoV-2 NAAT. CXR: Mild interstitial thickening RLL. CT abdomen pelvis: Constipation with marked fecal retention of rectum with associated stercoral proctitis. Urinary bladder wall thickening. Mild bilateral hydronephrosis, no urolith. No CT evidence of acute appendicitis. Hyperattenuating material within the gallbladder with equivocal gallbladder wall thickening. Patient admitted to ICU. Allergies Allergy/AdvReac Type Severity Reaction Status Date / Time Sulfa (Sulfonamide Allergy Rash Verified 05/20/22 16:38 Antibiotics) Home Medications Medication Instructions Recorded Confirmed Type polyethylene glycol 3350 17 gram 17 g PO DAILY PRN Constipation 05/20/22 05/20/22 History oral powder packet (Miralax) Past Med/Surg History Medical History ADHD Constipation Diarrhea No pertinent family history Surgical History Hx of tonsillectomy Family History Grandfather (Paternal) Hypertension Social History Smoking Status: Current some day smoker Tobacco Type: E-cigarettes / Vaping Hx Alcohol Use: No Hx Substance Use: No Preferred Language: [place] Communication Ability: Effective Clinical Trials Specialist Required: No Beliefs That Will Affect Care: None Current Living Situation: Family Feels Safe at Home: Yes Safety Concerns: Feels Safe At This Time Assistive Devices: None Review of Systems Review of Systems: All systems reviewed & are unremarkable except as noted in HPI & below Physical Exam Physical Exam: General: +ill appearing young male, WDWN Head: normocephalic, atraumatic Eyes: PERRL, EOM's intact, conjunctiva non-injected, anicteric ENT: normal inspection external ears, nose, mucous membranes dry Neck: supple, trachea midline, non-tender Lungs: clear, no respiratory distress, no wheezing/rhonchi/rales CV: regular rhythm, tachycardia, no murmur, no pretibial edema Abd: normal BS, soft, diffuse tenderness to abdomen without rebound or guarding Ext: +purple discoloration of bilateral hands and feet, no calf tenderness Neuro: A&O x 3, no focal deficits noted, normal affect Skin: warm, dry Results & Data Results & Data ([facility]) Vital Signs (Past 12 Hours) Vital Signs Temp Pulse Pulse Resp BP BP Pulse Ox 05/20/22 16:43 107 H 30 H 89/46 L 100 05/20/22 16:26 39.2 C H 119 H 38 H 89/38 L 100 05/20/22 16:10 112 H 16 88/35 L 100 05/20/22 13:42 05/20/22 13:08 36.4 C L 136 H 16 78/46 L 95 O2 Del Method 05/20/22 16:43 Room Air 05/20/22 16:26 Room Air 05/20/22 16:10 Room Air 05/20/22 13:42 Room Air 05/20/22 13:08 Room Air Laboratory Results Short CBC 05/20/22 05/20/22 Range/Units 14:21 19:30 WBC 21.10 H 24.82 H (4.8-10.8) K/ul Hgb 15.4 15.1 (14.0-18.0) g/dl Hct 44.0 42.4 (40.1-51.0) % Plt Count 166 154 (130-400) K/uL BMP 05/20/22 05/20/22 14:21 19:30 Sodium 133 L 133 L Potassium 4.8 4.7 Chloride 101 104 Carbon Dioxide 23 19 L BUN 38 H 36 H Creatinine 2.61 H 2.08 H D Glucose 110 H 89 Calcium 7.7 L 6.9 L Liver Function 05/20/22 05/20/22 Range/Units 14:21 19:30 Total Bilirubin 3.5 H 4.0 H (0.2-1.0) mg/dl Direct Bilirubin 1.0 H (0-0.2) mg/dl AST 132 H 101 H (13-39) U/L ALT 103 H 88 H (7-52) U/L Alkaline Phosphatase 68 58 (34-104) U/L Albumin 3.4 3.0 L (3.4-5.0) gm/dl Urine 05/20/22 Range/Units 15:00 Urine Color [place] Urine Appearance Cloudy A (Clear) Urine pH 5.0 (4.5-7.5) Ur Specific [place] 1.015 (1.000-1.030) Urine Protein 1+ H (Negative) Urine Glucose (UA) Negative (Negative) Diagnostic Findings Chest X-Ray 05/20/22 13:17 XR chest 1V portable HISTORY: Weakness. Tachycardia. COMPARISON: None. FINDINGS: No pneumothorax. No pleural effusions. The heart is normal in size. The trachea is midline. No acute fractures within the visualized osseous structures. The left lung is clear. Mild interstitial thickening within the right lung base. IMPRESSION: Mild interstitial thickening at the right lung base which could be due to the AP portable technique. A low-grade interstitial pneumonitis is not excluded. This will be better assessed on the same day abdomen and pelvis CT. ACT 112: Negative or not required by law. Electronically signed by: Dalton Drake M.D. 05/20/2022 2:58 PM Abdomen/Pelvis CT 05/20/22 15:[address] WITHOUT CONTRAST CT DOSE: 280.70 mGy.cm HISTORY: Acute nausea with vomiting and hypotension. Elevated LFTs v/d, hypotension, elev wbc, lfts TECHNIQUE: Multiaxial CT images of the abdomen and pelvis were performed without contrast. A dose lowering technique was utilized adhering to the principles of ALARA. COMPARISON STUDY: Chest radiograph of same day FINDINGS: Mild dependent subsegmental bibasilar atelectasis. No pneumatosis or pneumoperitoneum identified. The unenhanced spleen, pancreas and adrenal glands are unremarkable. Hyperdense material is noted within the gallbladder lumen. Equivocal gallbladder wall thickening without distention. The unenhanced liver is within normal limits. Mild bilateral hydroureter ureteronephrosis. No renal or ureteral calculi. Anteriorly displaced urinary bladder with circumferential wall thickening. The prostate measures within the upper limits of normal in size. Aorta and IVC are unremarkable. No lymphadenopathy identified. There is a large stool ball within the rectum measuring over 15 cm in length. The rectum is dilated and distended measuring up to 11 cm transversely. Circumferential wall thickening of the sigmoid and rectum with perirectal inflammatory stranding. Colonic fecal retention. There is a subcentimeter appendicolith present. No appendiceal dilation identified to suggest acute appendicitis. Scattered small bowel air-fluid levels within nondilated dilated loops are likely physiologic. Unremarkable soft tissues. Benign cystic structure of the L5 vertebral body. No acute fracture. IMPRESSION: 1. Constipation with marked fecal retention of the rectum resulting in associated stercoral proctitis. 2. The urinary bladder is displaced anteriorly. Circumferential wall thickening may represent cystitis. Correlate with urinalysis. 3. Mild bilateral hydronephrosis. No urolith. 4. Subcentimeter appendicolith is present. No CT evidence of acute appendicitis. 5. Hyperattenuating material within the gallbladder with equivocal gallbladder wall thickening. Findings could be correlated with ultrasound. 6. Additional findings as above. ACT 112: Negative or not required by law. The above report was generated using voice recognition software. It may contain grammatical, syntax or spelling errors. Electronically signed by: Elvin Terrell M.D. 05/20/2022 4:14 PM Supervising Physician Co-Signing Physician Notes Pt was seen and examined. Agreed with Krysten PA-C exam, assessment and plan. 21 y/o M with PMH ADHD, chronic constipation presented to ER with c/o N/V/D x 1 day. Pt said his symptoms started yesterday where he developed nausea, vomiting and diarrhea. He said that he felt weak and was drowsy. He said that his last BM was about 2 to 3 days. His mother found him on the bathroom floor looking sick and brought him to the ER. Denies any chest pain, palpitation, dizziness and SOB. In the ER he was found to be hypotensive. He received IVF and started on pressors. Lab on admission with WBC 21, lactate: 3.5, procalcitonin, UA consistent with possible UTI. CXR: Mild interstitial thickening RLL. CT abdomen pelvis showed constipation with marked fecal retention of rectum with associated stercoral proctitis. Urinary bladder wall thickening. Mild bilateral hydronephrosis, no urolith. He was received IV Zosyn in the ER and started on pressor. Blood cx and urine cx collected in the ER pending. Continue IV abx and IVF. . ER provider reached out to on-call GI for the fecal retention that recommended digital disimpaction and enema. GI consulted. Will follow Lactic acid, WBC. Pt will be monitor closely in the ICU. MD Zulay
[2022-05-20 17:20] LABS: HCO3 ABG 18 mmol/L (19-24); Oxygen Saturation ABG 97.2 % (90-95); PCO2 ABG 29 mmHg (35-46); PO2 ABG 73 mmHg (80-95); pH ABG 7.39 (7.35-7.45)
[2022-05-20 17:21] LABS: Allen Test Pos (Pos)
[2022-05-20] MEDS: ACETAMINOPHEN 65 ML IV PRN (17:46)
[2022-05-20] MEDS: VASOPRESSIN 20 UNITS in 0.9 % SODIUM CHLORIDE 100 ML IV SCH (17:49)
--- NOTE | 2022-05-20 18:26 | Critical Care Consultation ---
Date of Consultation May 20, 2022 Assessment & Plan (1) RAMON (acute kidney injury): (2) Transaminitis: (3) Shock circulatory: (4) UTI (urinary tract infection): (5) Fecal impaction: (6) ADHD: Plan Chest x-ray 05/17/2022 personally reviewed: Portable film, good respiratory e ffort, bilateral costophrenic and cardiophrenic angles are clean. Reason Critically Ill: 21-year-old male presented to the hospital with complaints of nausea vomiting and diarrhea. Found to be hypotensive with RAMON. Transferred to ICU for further care Neuro - [facility] ICU: Negative Cardiac - --Shock Likely component of dehydration as well as septic Source could be UTI versus GI Continue with antibiotic to cover for gram-negative and anaerobes Patient got total of 4 L IV fluid in the ER Vasopressor support to keep MAP greater than 65 --Elevated troponin Likely type II AR EKG does not show any ST-T wave changes Continue to trend Respiratory - Patient is tachypneic most likely from underlying acidosis and pain No AA gradient on ABG AB.39/29/73 on room air GI - -- Transaminitis Elevated AST ALT along with T bili T bili 3.5 with indirect bilirubin 2.5 Hepatitis panel ordered -- Significant stool impaction with chronic constipation as Will need manual disimpaction Surgery and GI has been consulted by ED Possibility of Hirschsprung disease is there --Diarrhea Is likely from overflow from the fecal impaction RENAL/LYTES - -- RAMON Likely obstructive from the stool impaction pressing on the bladder Follow-up urine lites Monitor BUN/creatinine Avoid nephrotoxic medications Strict ins and outs --Mild hydronephrosis bilaterally Again from stool impaction pressing on the bladder ENDO - ICU hypoglycemia protocol Random cortisol 58 Patient did get 100 mg of hydrocortisone in the ED HEME - Monitor H&H ID - -- Severe Sepsis Source is likely UTI with possible proctocolitis Continue with empiric antibiotic coverage Procalcitonin greater than 200, follow-up blood culture and urine culture COVID-19 NAAT negative --Prophylaxis VTE:Heparin GI: Protonix Lines: Peripheral Diet: N.p.o. Plan: Continue vasopressor support to keep MAP greater than 65 Follow-up LDH and Jorge test Repeat CBC Rheumatoid factor and anti-CCP to be done in the morning, cryoglobulins have been ordered for the purplish discoloration of the extremities Follow-up UDS, serum osmolality and urine osmolality I have personally spent 63 minutes of critical care time in the direct management of this patient. This is a life/limb threatening event. This includes time spent evaluating patient, direct bedside care, chart review, placing orders , interpretation of diagnostic studies, discussion with consultants, patient, and family members, as well as other required patient management activities. This time is exclusive of all separately billable procedures, and teaching time and separate from and in addition to any other critical care service time. History of Present Illness History of Present Illness 21-year-old male presented to the hospital with complaints of vomiting diarrhea and unable to sleep Past medical history: Constipation when he was a child. Dr. Joyner reached out to me given the critical condition of the patient Patient's mother was in the room during examination and interrogation Patient was started on Levophed he was on 0.12 mics at the time of examination with MAP 68. He was saturating 100% on room air. Heart rate in the 110's He denied any issues with breathing. He denied any headache. He stated he is feeling better after coming to the hospital No nausea vomiting in the hospital Denies any burning sensation when he urinates. Never had episodes like this in the past. No fever or chills at home. Denies using antifreeze or trying anything out of the ordinary. There is family history of rheumatoid arthritis in one of the grandmothers. Social history: Does vaping Denies any smoking. Social alcohol. Denies any other illicit drug use. Allergies Allergy/AdvReac Type Severity Reaction Status Date / Time Sulfa (Sulfonamide Allergy Rash Verified 05/20/22 16:38 Antibiotics) Home Medications Medication Instructions Recorded Confirmed Type polyethylene glycol 3350 17 gram 17 g PO DAILY PRN Constipation 05/20/22 05/20/22 History oral powder packet (Miralax) Patient History Medical History (Updated 05/20/22 @ 20:52 by Krysten Angel PA-C) ADHD Constipation Diarrhea No pertinent family history Surgical History (Updated 05/20/22 @ 20:47 by Krysten Angel PA-C) Hx of tonsillectomy Family History (Updated 05/20/22 @ 20:48 by Krysten Schreckengost, PA-C) Grandfather (Paternal) Hypertension Social History (Updated 05/20/22 @ 20:48 by Krysten Angel PA-C) Smoking Status: Current some day smoker Tobacco Type: E-cigarettes / Vaping Hx Alcohol Use: No Hx Substance Use: No Preferred Language: [place] Communication Ability: Effective Technician Support Engineer Required: No Beliefs That Will Affect Care: None Current Living Situation: Family Feels Safe at Home: Yes Safety Concerns: Feels Safe At This Time Assistive Devices: None Review of Systems Review of Systems: All systems reviewed & are unremarkable except as noted in HPI & below Physical Exam Physical Exam: Constitutional: No acute distress HEENT: EOMI, PERRLA Respiratory system: Good air entry bilaterally, no wheeze, no rhonchi, no crackles CVS: S1-S2 positive, no murmurs or gallops, tachycardia Abdomen: Soft, nondistended, decreased bowel sounds, positive mild abdominal tenderness, no rebound Extremities: +2 pulses bilaterally radialis/ dorsalis pedis, no cyanosis, no edema, purple hue of the upper extremities Neuro: Awake alert oriented x3 Psych: Normal mood and affect G/U: No Carlson Skin: no rashes, warm and dry Lymphatic: no cervical or axillary lymphadenopathy Results & Data Results & Data ([facility]) Vital Signs (Past 12 Hours) Vital Signs Temp Pulse Pulse Resp BP BP Pulse Ox 05/20/22 18:10 38.8 C H 98 H 18 109/73 96 05/20/22 18:02 05/20/22 17:50 116 H 23 99 05/20/22 17:45 91/46 L 05/20/22 17:45 121 H 34 H 99 05/20/22 17:40 118 H 33 H 99 05/20/22 17:30 123 H 36 H 98 05/20/22 17:30 90/54 L 05/20/22 17:20 109 H 32 H 100 05/20/22 17:15 85/41 L 05/20/22 17:15 114 H 39 H 100 05/20/22 17:10 119 H 38 H 100 05/20/22 17:00 117 H 30 H 100 05/20/22 17:00 98/59 L 05/20/22 16:50 107 H 28 H 100 05/20/22 16:45 96/52 L 05/20/22 16:45 107 H 31 H 100 05/20/22 16:42 89/46 L 05/20/22 16:42 112 H 34 H 100 05/20/22 16:40 120 H 35 H 100 05/20/22 16:30 120 H 26 H 100 05/20/22 16:30 87/43 L 05/20/22 16:28 93/44 L 05/20/22 16:28 119 H 23 100 05/20/22 16:25 89/38 L 05/20/22 16:25 118 H 28 H 100 05/20/22 16:20 117 H 15 100 05/20/22 16:15 90/50 L 05/20/22 16:15 120 H 36 H 99 05/20/22 16:10 111 H 30 H 100 05/20/22 16:05 88/35 L 05/20/22 16:05 121 H 33 H 99 05/20/22 16:00 124 H 26 H 05/20/22 15:57 122 H 33 H 05/20/22 15:30 127 H 26 H 100 05/20/22 15:30 70/40 L 05/20/22 15:23 131 H 24 100 05/20/22 15:23 81/39 L 05/20/22 15:20 136 H 19 100 05/20/22 15:18 91/42 L 05/20/22 15:18 129 H 30 H 98 05/20/22 15:15 121 H 29 H 100 05/20/22 15:15 76/36 L 05/20/22 15:10 123 H 29 H 100 05/20/22 15:00 143 H 37 H 98 05/20/22 14:58 112/59 L 05/20/22 14:58 130 H 33 H 100 05/20/22 14:50 126 H 22 100 05/20/22 14:50 84/37 L 05/20/22 14:41 130 H 33 H 100 05/20/22 14:41 93/36 L 05/20/22 14:40 131 H 31 H 05/20/22 16:43 107 H 30 H 89/46 L 100 05/20/22 16:26 39.2 C H 119 H 38 H 89/38 L 100 05/20/22 16:10 112 H 16 88/35 L 100 05/20/22 13:42 09/23/22 13:08 36.4 C L 136 H 16 78/46 L 95 O2 Del Method 05/20/22 18:10 Room Air 05/20/22 18:02 Room Air 05/20/22 17:50 Room Air 05/20/22 17:45 Room Air 05/20/22 17:45 Room Air 05/20/22 17:40 Room Air 05/20/22 17:30 Room Air 05/20/22 17:30 Room Air 05/20/22 17:20 Room Air 05/20/22 17:15 Room Air 05/20/22 17:15 Room Air 05/20/22 17:10 Room Air 05/20/22 17:00 Room Air 05/20/22 17:00 Room Air 05/20/22 16:50 Room Air 05/20/22 16:45 Room Air 05/20/22 16:45 Room Air 05/20/22 16:42 Room Air 05/20/22 16:42 Room Air 05/20/22 16:40 Room Air 05/20/22 16:30 Room Air 05/20/22 16:30 Room Air 05/20/22 16:28 Room Air 05/20/22 16:28 Room Air 05/20/22 16:25 Room Air 05/20/22 16:25 Room Air 05/20/22 16:20 Room Air 05/20/22 16:15 Room Air 05/20/22 16:15 Room Air 05/20/22 16:10 Room Air 05/20/22 16:05 Room Air 05/20/22 16:05 Room Air 05/20/22 16:00 Room Air 05/20/22 15:57 Room Air 05/20/22 15:30 Room Air 05/20/22 15:30 Room Air 05/20/22 15:23 Room Air 05/20/22 15:23 Room Air 05/20/22 15:20 Room Air 05/20/22 15:18 Room Air 05/20/22 15:18 Room Air 05/20/22 15:15 Room Air 05/20/22 15:15 Room Air 05/20/22 15:10 Room Air 05/20/22 15:00 Room Air 05/20/22 14:58 Room Air 05/20/22 14:58 Room Air 05/20/22 14:50 Room Air 05/20/22 14:50 Room Air 05/20/22 14:41 Room Air 05/20/22 14:41 Room Air 05/20/22 14:40 Room Air 05/20/22 16:43 Room Air 05/20/22 16:26 Room Air 05/20/22 16:10 Room Air 05/20/22 13:42 Room Air 05/20/22 13:08 Room Air Laboratory Results 05/20/22 14:21 05/20/22 14:21 Coding Level of Care Code Critical Care 1st 30-74 mins Diagnoses RAMON (acute kidney injury) N17.9 Transaminitis R74.01 Shock circulatory R57.9 UTI (urinary tract infection) N39.0 Fecal impaction K56.41 ADHD F90.9 Time Spent (min) 63
[2022-05-20] MEDS ORDERED: ICU PROTOCOL FOR HYPERGLYCEMIA PRN (18:30)
[2022-05-20] MEDS: NORMOSOL-R 500 ML IV SCH (19:00)
[2022-05-20 20:08] LABS: Hematocrit (blood only) 42.4 % (40.1-51.0); Hemoglobin 15.1 g/dl (14.0-18.0); Mean Corpuscular Hemoglobin 32.7 pg (25.0-34.0); Mean Corpuscular Hgb Conc 35.6 g/dL (32.0-36.0); Mean Corpuscular Volume 91.8 fL (80.0-100.0); Mean Platelet Volume 11.4 fL (9.4-12.4); Platelet Count 154 K/uL (130-400); RDW Coefficient of Variation 12.8 % (11.5-14.5); RDW Standard Deviation 43.1 fL (36.4-46.3); Red Blood Count 4.62 M/uL (4.63-6.08); White Blood Count 24.82 K/ul (4.8-10.8)
[2022-05-20 20:32] LABS: Albumin Globulin Ratio 1.5 (0.9-2); BUN Creatinine Ratio 17.3 (10-20); Calcium 6.9 mg/dl (8.5-10.1); Creatinine Clr Calc Pharmacy 45.8 ml/min; Est GFR (African American) 51.6 ml/min; Est GFR (Non-African American) 44.5 ml/min; Potassium 4.7 mmol/L (3.5-5.1)
[2022-05-20 20:52] LABS: Basophils # (auto) 0.06 K/uL (0-0.2); Basophils % (auto) 0.2 %; Dohle Bodies 1+; Echinocytes 1+; Eosinophils # (auto) 0.16 K/uL (0-0.50); Eosinophils % (auto) 0.6 %; Immature Granulocytes % (auto) 6.4 %; Lymphocytes # (auto) 0.54 K/uL (1.2-3.4); Lymphocytes % (auto) 2.2 %; Monocytes % (auto) 3.6 %; Neutrophils # (auto) 21.56 K/uL (1.4-6.5); Toxic Vacuolation 1+
[2022-05-20] MEDS ORDERED: PIPERACILLIN/TAZOBACTAM 3.375 GM in DEXTROSE 5% 100 ML IV ONE (22:00)
[2022-05-21 00:19] LABS: Amphetamines+Metham, Urine Neg (Neg); Barbiturates, Urine Neg (Neg); Benzodiazepine, Urine Neg (Neg); Cocaine, Urine Neg (Neg); MDMA (Ecstacy), Urine Neg (Neg); Methadone, Urine Neg (Neg); Opiate, Urine Neg (Neg); Phencyclidine, Urine Neg (Neg)
[2022-05-21] MEDS ORDERED: NORMOSOL-R 1,000 ML IV ONE ×2 (03:17→09:43)
[2022-05-21 04:44] LABS: Hemoglobin 15.3 g/dl (14.0-18.0); Mean Corpuscular Hemoglobin 32.8 pg (25.0-34.0); Mean Corpuscular Hgb Conc 36.4 g/dL (32.0-36.0); Mean Corpuscular Volume 90.1 fL (80.0-100.0); Mean Platelet Volume 11.2 fL (9.4-12.4); Platelet Count 139 K/uL (130-400); RDW Coefficient of Variation 12.6 % (11.5-14.5); RDW Standard Deviation 41.3 fL (36.4-46.3); Red Blood Count 4.66 M/uL (4.63-6.08); White Blood Count 23.93 K/ul (4.8-10.8)
[2022-05-21] MEDS: PIPERACILLIN/TAZOBACTAM 3.375 GM in DEXTROSE 5% 100 ML IV SCH ×3 (04:45→20:01)
[2022-05-21 05:14] LABS: BUN Creatinine Ratio 18.7 (10-20); Creatinine Clr Calc Pharmacy 50.9 ml/min; Est GFR (African American) 58.7 ml/min; Est GFR (Non-African American) 50.6 ml/min; Magnesium 1.8 mg/dl (1.7-2.4); Phosphorus 3.5 mg/dl (2.5-4.9); Potassium 3.9 mmol/L (3.5-5.1)
[2022-05-21 05:17] LABS: Troponin I High Sensitivity 602.8 pg/ml (0-20)
[2022-05-21 05:24] LABS: Acanthocytes 2+; Basophils # (auto) 0.08 K/uL (0-0.2); Basophils % (auto) 0.3 %; Echinocytes 3+; Eosinophils # (auto) 0.16 K/uL (0-0.50); Eosinophils % (auto) 0.7 %; Immature Granulocytes % (auto) 8.4 %; Lymphocytes # (auto) 0.89 K/uL (1.2-3.4); Lymphocytes % (auto) 3.7 %; Monocytes # (auto) 1.03 K/uL (0.24-0.82); Monocytes % (auto) 4.3 %; Neutrophils # (auto) 19.77 K/uL (1.4-6.5); Neutrophils % (auto) 82.6 %; Toxic Vacuolation 2+
[2022-05-21] MEDS ORDERED: CALCIUM CHLORIDE 10% 1,000 MG in DEXTROSE 5% 50 ML IV STA (06:02)
[2022-05-21] MEDS ORDERED: MAGNESIUM SULFATE / D5W 1 GM/100 ML BAG IV ONE (06:02)
[2022-05-21] MEDS: ACETAMINOPHEN 65 ML IV PRN (06:14)
[2022-05-21 06:26] LABS: Adenovirus F 40/41 PCR Not Detected (NotDetected); Astrovirus PCR Not Detected (NotDetected); Campylobacter PCR Not Detected (NotDetected); Clostridium diff Toxin A/B PCR Not Detected (NotDetected); Cryptosporidium PCR Not Detected (NotDetected); Cyclospora cayetanensis PCR Not Detected (NotDetected); Entamoeba histolytica PCR Not Detected (NotDetected); Enteroaggregative E.coli(EAEC) Not Detected (NotDetected); Enteropathogenic E.coli (EPEC) Not Detected (NotDetected); Enterotoxigenic E.coli (ETEC) Not Detected (NotDetected); Giardia lamblia PCR Not Detected (NotDetected); Norovirus GI/GII PCR Not Detected (NotDetected); Plesiomonas shigelloides PCR Not Detected (NotDetected); Rotavirus A PCR Not Detected (NotDetected); Salmonella PCR Not Detected (NotDetected); Sapovirus PCR Not Detected (NotDetected); Shiga-like Toxin E.coli (STEC) Not Detected (NotDetected); Shigella/Enteroinvasive E.coli Not Detected (NotDetected); Vibrio cholerae PCR Not Detected (NotDetected); Vibrio species PCR Not Detected (NotDetected); Yersinia enterocolitica PCR Not Detected (NotDetected)
[2022-05-21] MEDS: NOREPINEPHRINE/D5W 4 MG/250 ML PLCT IV SCH (07:02)
--- NOTE | 2022-05-21 08:48 | Critical Care Progress Note ---
Date of Service May 21, 2022 Assessment & Plan (1) RAMON (acute kidney injury): (2) Transaminitis: (3) Shock circulatory: (4) UTI (urinary tract infection): (5) Fecal impaction: (6) ADHD: Plan Chest x-ray 05/17/2022 personally reviewed: Portable film, good respiratory effort, bilateral costophrenic and cardiophrenic angles are clean. Reason Critically Ill: 21-year-old male presented to the hospital with complaints of nausea vomiting and diarrhea. Found to be hypotensive with RAMON. Transferred to ICU for further care Neuro - [facility] ICU: Negative Cardiac - --Shock Likely component of dehydration as well as septic Source could be UTI versus GI Continue with antibiotic to cover for gram-negative and anaerobes Patient got total of 4 L IV fluid in the ER Vasopressor support to keep MAP greater than 65 --Elevated troponin Likely type II PA EKG does not show any ST-T wave changes Continue to trend Respiratory - Patient is tachypneic most likely from underlying acidosis and pain No AA gradient on ABG AB.39/29/ on room air GI - -- Transaminitis --> slowly trending down Elevated AST ALT along with T bili T bili 3.5 with indirect bilirubin 2.5 Hepatitis panel ordered -- Significant stool impaction with chronic constipation Continue with enema Surgery and GI has been consulted by ED Possibility of Hirschsprung disease is there --Diarrhea Is likely from overflow from the fecal impaction RENAL/LYTES - -- RAMON --> slowly improving with good urine output Likely obstructive from the stool impaction pressing on the bladder Follow-up urine lites Monitor BUN/creatinine Avoid nephrotoxic medications Strict ins and outs --Mild hydronephrosis bilaterally Again from stool impaction pressing on the bladder ENDO - ICU hypoglycemia protocol Random cortisol 58 Patient did get 100 mg of hydrocortisone in the ED HEME - Monitor H&H ID - -- Severe Sepsis Source is likely UTI with possible proctocolitis Continue with empiric antibiotic coverage Procalcitonin greater than 200, follow-up blood culture and urine culture COVID-19 NAAT negative --Prophylaxis VTE:Heparin GI: Protonix Lines: Peripheral Diet: Clear liquids Plan: In/out: +4 L, urine output 2428 Hypomagnesemia being replaced Patient is still requiring 2 vasopressors. Given the requirement is more than 12 hours I would rather have a central line rather than peripheral access. Risk and benefit of the procedure explained to the patient. He is agreeing into it. Patient did get 1 L Normosol admitted the night. Give another 1 L of Normosol Continue with enemas. UDS negative I have personally spent 38 minutes of critical care time in the direct management of this patient. This is a life/limb threatening event. This includes time spent evaluating patient, direct bedside care, chart review, placing orders, interpretation of diagnostic studies, discussion with consultants, patient, and family members, as well as other required patient management activities. This time is exclusive of all separately billable procedures, and teaching time and separate from and in addition to any other critical care service time. Admission and Anticipated Discharge Date Admission Date: May 20, 2022 Subjective Patient seen and examined at bedside. No acute distress. He was still on 0.08 of Levophed at the time of examination with MAP being in the low 60s. Vasopressin was be added to be started Overnight patient did complain of tingling sensation in the left extremity and a midline was placed in the right arm. Denies any nausea vomiting, no abdominal pain Overall he says that he feels better compared to when he came to the hospital No dizziness. Review of Systems Review of Systems: All systems reviewed & are unremarkable except as noted in Subjective Physical Exam Physical Exam: Constitutional: No acute distress HEENT: EOMI, PERRLA Respiratory system: Good air entry bilaterally, no wheeze, no rhonchi, no crackles CVS: S1-S2 positive, no murmurs or gallops, tachycardia Abdomen: Soft, nondistended, decreased bowel sounds, positive mild abdominal tenderness, no rebound Extremities: +2 pulses bilaterally radialis/ dorsalis pedis, no cyanosis, no edema, purple hue of the upper extremities Neuro: Awake alert oriented x3 Psych: Normal mood and affect G/U: No Carlson Skin: no rashes, warm and dry Lymphatic: no cervical or axillary lymphadenopathy Results & Data Results & Data ([facility]) Vital Signs (Past 12 Hours) Vital Signs Temp Pulse Resp BP Pulse Ox 05/21/22 05:50 37.9 C H 140 H 28 H 100 05/21/22 05:40 122 H 23 100 05/21/22 05:30 127 H 27 H 100 05/21/22 05:20 113 H 24 100 05/21/22 05:10 122 H 23 100 05/21/22 05:07 104/55 L 05/21/22 05:07 117 H 28 H 100 05/21/22 05:01 77/42 L 05/21/22 05:01 115 H 24 100 05/21/22 05:00 119 H 26 H 100 05/21/22 05:00 77/45 L 05/21/22 04:50 125 H 32 H 100 05/21/22 04:41 92/47 L 05/21/22 04:41 130 H 35 H 100 05/21/22 04:00 37.6 C H 138 H 30 H 98 05/21/22 04:00 89/42 L 05/21/22 03:00 134 H 31 H 100 05/21/22 03:00 100/50 L 05/21/22 02:48 97/57 L 05/21/22 02:48 139 H 29 H 100 05/21/22 02:31 137 H 24 100 05/21/22 02:00 37.5 C 129 H 29 H 100 05/21/22 02:00 83/60 L 05/21/22 01:30 82/55 L 05/21/22 01:30 130 H 21 100 05/21/22 01:00 122 H 29 H 100 05/21/22 01:00 93/57 L 05/21/22 00:30 120 H 27 H 100 05/21/22 00:30 89/60 L 05/21/22 00:00 111 H 26 H 100 05/21/22 00:00 36.8 C 82/54 L 05/20/22 23:30 123 H 29 H 100 05/20/22 23:30 104/71 05/20/22 23:01 130 H 32 H 100 05/20/22 23:01 104/60 05/20/22 23:00 129 H 36 H 100 05/20/22 22:32 111 H 38 H 96 05/20/22 22:32 98/78 L 05/20/22 22:06 105 H 33 H 73 L 05/20/22 22:06 123/86 05/20/22 22:01 104 H 31 H 100 05/20/22 22:01 154/112 H 05/20/22 22:00 92 H 28 H 99 05/20/22 21:00 101 H 31 H 98 05/20/22 21:00 126/103 H 05/21/22 00:00 116 H Laboratory Results 05/21/22 04:26 05/21/22 04:26 Coding Level of Care Code Critical Care 1st 30-74 mins Diagnoses RAMON (acute kidney injury) N17.9 Transaminitis R74.01 Shock circulatory R57.9 UTI (urinary tract infection) N39.0 Hematuria presence: without hematuria Urinary tract infection type: site unspecified Fecal impaction K56.41 ADHD F90.9 Time Spent (min) 38 (1) UTI (urinary tract infection) Hematuria presence: without hematuria Urinary tract infection type: site unspecified Qualified Code(s): N39.0 - Urinary tract infection, site not specified
[2022-05-21] MEDS: HEPARIN SOD 5,000 UNIT/0.5 ML VIAL SQ SCH ×2 (09:09→20:01)
--- NOTE | 2022-05-21 10:09 | Procedure Note ---
Procedure Note Date of Service May 21, 2022 Note Procedure: Inserting ultrasound-guided central furnace liner: Dr. Kimberly Newell Indication: Hypotension Consent: Signed by patient and verified with timeout prior to procedure. Anesthesia: 1% lidocaine without epinephrine local. Procedure: Consent was verified and timeout performed. Appropriate imaging studies were reviewed prior to the procedure. Under aseptic and sterile condition, right IJ vein was accessed under direct ultrasound guidance. Guidewire was confirmed to be within the lumen of vein with the help of ultrasound. Catheter was introduced via Seldinger technique. Guide a wire was removed. Good non-pulsatile blood flow was appreciated from all the ports. The catheter was placed at 16 cm and sut[address] in place. BioPatch was applied to the catheter and a sterile Tegaderm dressing was applied over the catheter with careful attention to sterility. Lung sliding was appreciated post procedure with the help ultrasound. Chest x-ray to follow Patient tolerated the procedure well. Blood loss: Less than 2 cc Complications: None Coding CPT Codes Tubes, Drains, and Vasc Access - Tubes, Drains, and Vasc Access: [id number] Place catheter in vein superior or inferior vena cava ([id number]) Tubes, Drains, and Vasc Access - Tubes, Drains, and Vasc Access: [id number] Ultrasound Guidance For Vascular ([id number]) [facility] [place] Procedure Codes (Charges) Tubes, Drains, and Vasc Access Procedure 1: Tubes, Drains, and Vasc Access: [id number] Place catheter in vein superior or inferior vena cava Procedure 2: Tubes, Drains, and Vasc Access: [id number] Ultrasound Guidance For Vascular
--- NOTE | 2022-05-21 10:47 | XRay Report ---
XR chest 1V portable HISTORY: 21 years-old Male CVC placement status post placement of a right IJ central venous catheter COMPARISON: Chest radiograph 05/20/2022 TECHNIQUE: Portable AP view of the chest FINDINGS: Cardiac silhouette is enlarged. Right IJ venous catheter is noted with distal tip in the expected loc ation of the inferior SVC. No pneumothorax, pleural effusion, airspace consolidation or overt pulmona ry edema. Bones of the chest appear grossly intact. IMPRESSION: Status post placement of a right IJ central venous catheter with distal tip in the expect ed location of the inferior SVC. No postprocedural pneumothorax. ACT 112: Negative or not required by law. The above report was generated using voice recognition software. It may contain grammatical, syntax o r spelling errors. Electronically signed by: Elvin Terrell M.D. 05/21/2022 10:46 AM
[2022-05-21] MEDS: VASOPRESSIN 20 UNITS in 0.9 % SODIUM CHLORIDE 100 ML IV SCH ×2 (10:53→21:11)
[2022-05-21] MEDS: MINERAL OIL ENEMA 133 ML BTL PR PRN (10:54)
--- NOTE | 2022-05-21 12:22 | Hospitalist Progress Note ---
Date of Service May 21, 2022 Assessment & Plan (1) Sepsis: (2) Shock circulatory: Plan: Patient is 21 y/o M with PMH ADHD, chronic constipation presented to ER with c/o N/V/D x 1 day. Lethargic and weak, chills. Admitted to ICU and resuscitated requiring two pressors for hemodynamic support. Possible GI vs Urine source. Improved on abx. Chronic constipation. Cont current management per ICU (3) RAMON (acute kidney injury): Plan: pre-renal vs ATN in sepsis. Cont current management and monitor BMP daily. (4) Elevated LFTs: Plan: hyperbilirubinemia and elevated LFTs. Nonspecific material in the gallbladder. No RUQ tenderness and n/v has resolved. Monitor bilirubin and LFTs for another day and if still elevated consider investigative imaging to rule out obstructive cause. (5) Elevated troponin I level: Plan: Likely secondary to demand ischemia (6) Fecal impaction: Plan: History of chronic constipation CT abdomen pelvis: Significant constipation with fecal retention of rectum ?Reported diarrhea may be secondary to overflow from constipation ER provider reached out to on-call GI who had recommended digital disimpaction and enema Continues mineral oil enema PRN DVT Prophylaxis Heparin SQ Dispo-current hospital management per ICU while on pressor support. Rekha Carrero DO [facility] Hospitalist Admission and Anticipated Discharge Date Admission Date: May 20, 2022 Subjective 21-year-old man presents with septic shock Today he is awake and mentating well remaining on Levophed and vasopressin for blood pressure support. He denies any nausea vomiting or pain. He reports persistent constipation is an ongoing problem. He denies any recent intercourse and is heterosexual Denies any recent instrumentation via urethra for medical procedures UDS is negative and he denies any smoking, street drug use He feels better than admission. Review of Systems Review of Systems: All systems reviewed negative except as indicated above. Physical Exam Physical Exam: CONSTITUTIONAL: WNWD, vitals as above, generally well- appearing, NAD EYES: normal conjunctivae, no scleral icterus, ENT: external ear and nose normal, MMM, right IJ in place NECK: trachea midline, RESPIRATORY: clear to auscultation bilaterally, no crackles, rales or wheezes, normal respiratory effort CARDIOVASCULAR: regular rate and rhythm, S1 and 2 heard without murmurs, gallops or rubs, no JVD, no peripheral edema, CHEST: inspection of chest was normal GASTROINTESTINAL: soft, nontender, no guarding MUSCULOSKELETAL: strength 5/5 throughout, head is normocephalic and atraumatic, SKIN: warm and dry, linear purple rash on LUE on forearm. There is a slight erythema around the border where the purple stops and this is a well demarcated area. New since blood draw attempts per patient. NEUROLOGIC: CN 2-12 grossly intact, no sensory deficit, normal cognition, normal speech, no tremor PSYCHIATRIC: alert cooperative and oriented to person, place and time. Results & Data Results & Data ([facility]) Vital Signs (Past 12 Hours) Vital Signs Temp Pulse Resp BP BP Pulse Ox 05/21/22 09:54 110/79 05/21/22 09:30 113/79 05/21/22 08:00 37.3 C 05/21/22 10:00 37.1 C 05/21/22 05:50 37.9 C H 140 H 28 H 100 05/21/22 05:40 122 H 23 100 05/21/22 05:30 127 H 27 H 100 05/21/22 05:20 113 H 24 100 05/21/22 05:10 122 H 23 100 05/21/22 05:07 104/55 L 05/21/22 05:07 117 H 28 H 100 05/21/22 05:01 77/42 L 05/21/22 05:01 115 H 24 100 05/21/22 05:00 119 H 26 H 100 05/21/22 05:00 77/45 L 05/21/22 04:50 125 H 32 H 100 05/21/22 04:41 92/47 L 05/21/22 04:41 130 H 35 H 100 05/21/22 04:00 37.6 C H 138 H 30 H 98 05/21/22 04:00 89/42 L 05/21/22 03:00 134 H 31 H 100 05/21/22 03:00 100/50 L 05/21/22 02:48 97/57 L 05/21/22 02:48 139 H 29 H 100 05/21/22 02:31 137 H 24 100 05/21/22 02:00 37.5 C 129 H 29 H 100 05/21/22 02:00 83/60 L 05/21/22 01:30 82/55 L 05/21/22 01:30 130 H 21 100 05/21/22 01:00 122 H 29 H 100 05/21/22 01:00 93/57 L 05/21/22 00:30 120 H 27 H 100 05/21/22 00:30 89/60 L Laboratory Results Short CBC 05/20/22 05/20/22 05/21/22 Range/Units 14:21 19:30 04:26 WBC 21.10 H 24.82 H 23.93 H (4.8-10.8) K/ul Hgb 15.4 15.1 15.3 (14.0-18.0) g/dl Hct 44.0 42.4 42.0 (40.1-51.0) % Plt Count 166 154 139 (130-400) K/uL BMP 05/20/22 05/20/22 05/21/22 14:21 19:30 04:26 Sodium 133 L 133 L 135 L Potassium 4.8 4.7 3.9 Chloride 101 104 104 Carbon Dioxide 23 19 L 23 BUN 38 H 36 H 35 H Creatinine 2.61 H 2.08 H D 1.87 H Glucose 110 H 89 108 H Calcium 7.7 L 6.9 L 7.0 L Liver Function 05/20/22 05/20/22 Range/Units 14:21 19:30 Total Bilirubin 3.5 H 4.0 H (0.2-1.0) mg/dl Direct Bilirubin 1.0 H (0-0.2) mg/dl AST 132 H 101 H (13-39) U/L ALT 103 H 88 H (7-52) U/L Alkaline Phosphatase 68 58 (34-104) U/L Albumin 3.4 3.0 L (3.4-5.0) gm/dl Urine 05/20/22 Range/Units 15:00 Urine Color [place] Urine Appearance Cloudy A (Clear) Urine pH 5.0 (4.5-7.5) Ur Specific [place] 1.015 (1.000-1.030) Urine Protein 1+ H (Negative) Urine Glucose (UA) Negative (Negative) Diagnostic Findings Chest X-Ray 05/21/22 09:52 XR chest 1V portable HISTORY: 21 years-old Male CVC placement status post placement of a right IJ central venous catheter COMPARISON: Chest radiograph 05/20/2022 TECHNIQUE: Portable AP view of the chest FINDINGS: Cardiac silhouette is enlarged. Right IJ venous catheter is noted with distal tip in the expected location of the inferior SVC. No pneumothorax, pleural effusion, airspace consolidation or overt pulmonary edema. Bones of the chest appear grossly intact. IMPRESSION: Status post placement of a right IJ central venous catheter with distal tip in the expected location of the inferior SVC. No postprocedural pneumothorax. ACT 112: Negative or not required by law. The above report was generated using voice recognition software. It may contain grammatical, syntax or spelling errors. Electronically signed by: Elvin Terrell M.D. 05/21/2022 10:46 AM Medications Administered Current Inpatient Medications Heparin Sodium (Porcine) (Heparin Sod 5,000 Unit/0.5 Ml Vial) 5,000 units SQ Q12 CARMINE Stop: 06/20/22 08:59 Last Admin: 05/21/22 09:09 Dose: 5,000 units Norepinephrine Bitartrate (Levophed/D5w) 4 mg in 250 mls @ 10.706 mls/hr IV .[id number] CARMINE; Protocol Stop: 06/19/22 14:29 Last Titration: 05/21/22 09:54 Dose: 0.04 mcg/kg/min, 8.6 mls/hr Vasopressin 20 units/ Sodium (Chloride) 101 mls @ 12.12 mls/hr IV .Q8H20M CARMINE Stop: 06/19/22 16:44 Last Admin: 05/21/22 10:53 Dose: 0.04 unit/min, 12.1 mls/hr Acetaminophen (Ofirmev) 65 mls @ 260 mls/hr IV Q6H PRN PRN Reason: Fever Stop: 05/23/22 17:14 Last Infusion: 05/21/22 06:38 Dose: Infused Piperacillin Sod/Tazobactam (Sod 3.375 gm/ Dextrose) 115 mls @ 28.75 mls/hr IV Q8H CARMINE; Protocol Stop: 05/31/22 03:59 Last Infusion: 05/21/22 08:45 Dose: Infused Mineral Oil (Mineral Oil Enema 133 Ml Btl) 133 ml UT Q8H PRN PRN Reason: Constipation Stop: 06/20/22 08:44 Last Admin: 05/21/22 10:54 Dose: 133 ml Miscellaneous (Icu Protocol For Hyperglycemia) 1 each N/A PRN PRN; Protocol PRN Reason: Hyperglycemia Protocol Stop: 05/22/22 18:29
[2022-05-21] MEDS ORDERED: SODIUM BICARB 8.4% INJ 50 MEQ/50 ML SYR IV ONE (18:30)
[2022-05-22] MEDS: PIPERACILLIN/TAZOBACTAM 3.375 GM in DEXTROSE 5% 100 ML IV SCH (03:58)
[2022-05-22 05:39] LABS: Hematocrit (blood only) 38.8 % (40.1-51.0); Hemoglobin 14.1 g/dl (14.0-18.0); Mean Corpuscular Hemoglobin 32.9 pg (25.0-34.0); Mean Corpuscular Hgb Conc 36.3 g/dL (32.0-36.0); Mean Corpuscular Volume 90.4 fL (80.0-100.0); Mean Platelet Volume 11.6 fL (9.4-12.4); Platelet Count 107 K/uL (130-400); RDW Coefficient of Variation 12.8 % (11.5-14.5); RDW Standard Deviation 42.4 fL (36.4-46.3); Red Blood Count 4.29 M/uL (4.63-6.08); White Blood Count 19.92 K/ul (4.8-10.8)
[2022-05-22 05:40] LABS: Acanthocytes 2+; Basophils # (auto) 0.14 K/uL (0-0.2); Basophils % (auto) 0.7 %; Dohle Bodies 1+; Echinocytes 1+; Eosinophils # (auto) 0.32 K/uL (0-0.50); Eosinophils % (auto) 1.6 %; Immature Granulocytes # (auto) 0.17 K/uL (0.00-0.02); Immature Granulocytes % (auto) 0.9 %; Lymphocytes # (auto) 1.47 K/uL (1.2-3.4); Lymphocytes % (auto) 7.4 %; Monocytes # (auto) 1.54 K/uL (0.24-0.82); Monocytes % (auto) 7.7 %; Neutrophils # (auto) 16.28 K/uL (1.4-6.5); Neutrophils % (auto) 81.7 %; Platelet Estimate Decreased (Normal); Toxic Vacuolation 1+
[2022-05-22] MEDS: NORMOSOL-R 500 ML IV SCH (06:08)
[2022-05-22 06:14] LABS: Albumin Level 2.9 gm/dl (3.4-5.0); Bilirubin Direct 0.5 mg/dl (0-0.2); Bilirubin,Total 1.8 mg/dl (0.2-1.0); Calcium 7.9 mg/dl (8.5-10.1); Creatinine Clr Calc Pharmacy 88.9 ml/min; Est GFR (African American) 100.3 ml/min; Est GFR (Non-African American) 86.5 ml/min; Magnesium 2.2 mg/dl (1.7-2.4); Phosphorus 1.8 mg/dl (2.5-4.9); Potassium 3.7 mmol/L (3.5-5.1); Total Protein 5.1 gm/dl (6.0-8.3)
[2022-05-22] MEDS ORDERED: POTASSIUM PHOS 3 MMOL/1 ML INFUSION IV STA (06:33)
[2022-05-22] MEDS ORDERED: POTASSIUM PHOSPHATE 15 MMOL in SODIUM CHLORIDE 0.9% 250 ML IV ONE (06:45)
[2022-05-22] MEDS ORDERED: NORMOSOL-R 500 ML IV ONE (08:39)
[2022-05-22] MEDS ORDERED: BUTT PASTE (ZINC OXIDE 16%) 171 APPLN/57 GM JAR EXT PRN (08:47)
[2022-05-22] MEDS: HEPARIN SOD 5,000 UNIT/0.5 ML VIAL SQ SCH (08:56)
[2022-05-22] MEDS ORDERED: NORMOSOL-R 1,000 ML IV ONE (09:10)
--- NOTE | 2022-05-22 09:38 | Gastrointestinal Consultation ---
Date of Consultation May 22, 2022 Assessment & Plan (1) Fecal impaction: He does have a fecal impaction and seems to have stercoral inflammation as well. I doubt this is the cause of his sepsis but it is possible. He is receiving mineral oil enemas and that is a good way to get started relief of this. He may well need a digital disimpaction and I have discussed this with his nurse. I would like to do large volume tap water enemas to help break this up but would prefer to have his pressures more stable before his colon gets distended. He may also need colonoscopy prep to get completely cleaned out but again will wait until his pressures are more stable. This is a chronic problem but I can't say it hasn't contributed to his acute issues. On discharge he will need to be at least on miralax daily. Present on Admission?: Yes (2) Elevated LFTs: I suspect these were elevated related to his sepsis. They are getting more towards normal. I don't think further workup needed at this time Present on Admission?: Yes History of Present Illness Reason for Consultation: Fecal impaction Attending Physician: Rekha Carrero, History of Present Illness 21 year old man admitted with signs and symptoms of sepsis requiring pressor support. Etiology of the sepsis is not clear. On admit he had evidence of large fecal impaction on CT scan. He denies chronic symptoms of constipation. He does admit to seeing a GI doctor "when I was a lot younger" for this problem. He says he doesn't know how often he goes to the bathroom but he gets the normal urge and he goes. He never worries about it and he denies any abdominal pain with regards to it. On occasion he does take miralax but he doesn't quantify how often. He "thinks" he may have had a disimpaction in the past but isn't sure. Apparently sister and mother have problems with constipation as well. He is currently off pressors but his blood pressure is still tenuous according to his nurse. He tells me he feels well. Allergies Allergy/AdvReac Type Severity Reaction Status Date / Time Sulfa (Sulfonamide Allergy Rash Verified 05/20/22 16:38 Antibiotics) Home Medications Medication Instructions Recorded Confirmed Type polyethylene glycol 3350 17 gram 17 g PO DAILY PRN Constipation 05/20/22 05/20/22 History oral powder packet (Miralax) Patient History Medical History ADHD Constipation Diarrhea No pertinent family history Surgical History Hx of tonsillectomy Family History Grandfather (Paternal) Hypertension Social History Smoking Status: Current some day smoker Tobacco Type: E-cigarettes / Vaping Hx Alcohol Use: No Hx Substance Use: No Preferred Language: Pakistani Communication Ability: Effective Accounts Payable Technician Required: No Beliefs That Will Affect Care: None Current Living Situation: Family Feels Safe at Home: Yes Safety Concerns: Feels Safe At This Time Assistive Devices: None Review of Systems Review of Systems: All systems reviewed & are unremarkable except as noted in HPI & below Physical Exam Constitutional: WD/WN, vitals as above no acute distress Eyes: PERRL, conjunctivae normal, anicteric sclerae ENMT: external ear and nose normal, oropharynx normal Neck: trachea midline, no thyromegaly Respiratory: normal respiratory effort, lungs clear to auscultation Cardiovascular: RRR, no murmur, no edema Gastrointestinal (Abdomen): normal bowel sounds, soft, nontender, no hepatosplenomegaly Musculoskeletal: Extremities: no cyanosis and no clubbing Skin: no rashes, warm and dry Neurologic: PERRL, EOMI, accommodation nl, no face palsy, no dysarthria Psychiatric: Orientation: alert and oriented x 3 Results & Data ([facility]) Vital Signs (Past 12 Hours) Vital Signs Temp Pulse Resp BP 05/22/22 06:30 118 H 24 05/22/22 06:20 105 H 05/22/22 06:10 95 H 05/22/22 06:00 100 H 05/22/22 06:00 101/57 L 05/22/22 05:50 105 H 25 H 05/22/22 05:40 112 H 25 H 05/22/22 05:30 99 H 05/22/22 05:20 91 H 05/22/22 05:17 88/45 L 05/22/22 05:17 87 21 05/22/22 05:10 93 H 21 05/22/22 05:00 97 H 24 05/22/22 05:00 100/51 L 05/22/22 04:40 103 H 25 H 05/22/22 04:30 103 H 23 05/22/22 04:20 96 H 23 05/22/22 04:10 97 H 20 05/22/22 04:00 103 H 17 05/22/22 04:00 98/48 L 05/22/22 03:50 114 H 21 05/22/22 03:40 109 H 24 05/22/22 03:30 113 H 19 05/22/22 03:20 103 H 20 05/22/22 03:10 99 H 23 05/22/22 03:00 125 H 25 H 05/22/22 03:00 91/57 L 05/22/22 02:50 97 H 22 05/22/22 02:40 109 H 15 05/22/22 02:30 109 H 27 H 05/22/22 02:20 108 H 26 H 05/22/22 02:10 105 H 30 H 05/22/22 02:00 117 H 22 05/22/22 02:00 92/56 L 05/22/22 01:50 114 H 24 05/22/22 01:40 125 H 21 05/22/22 01:30 114 H 27 H 05/22/22 01:20 110 H 25 H 05/22/22 01:10 120 H 20 05/22/22 01:00 105 H 19 05/22/22 01:00 94/57 L 05/22/22 00:50 101 H 22 05/22/22 00:40 121 H 20 05/22/22 00:30 117 H 26 H 05/22/22 00:20 117 H 19 05/22/22 04:09 37.1 C 05/22/22 01:06 37.2 C 05/22/22 00:15 100/50 L 05/22/22 00:15 118 H 25 H 05/22/22 00:10 116 H 23 05/22/22 00:00 111 H 23 05/21/22 23:50 106 H 23 05/21/22 23:40 105 H 23 05/21/22 23:30 102 H 23 05/21/22 23:20 101 H 24 05/21/22 23:10 103 H 24 05/21/22 23:01 99/37 L 05/21/22 23:01 113 H 20 05/21/22 23:00 104 H 24 05/21/22 22:53 107 H 28 H 05/21/22 22:51 111 H 28 H 05/21/22 22:50 120 H 20 05/21/22 22:41 111/76 05/21/22 22:41 119 H 29 H 05/21/22 22:40 120 H 16 05/21/22 22:30 111 H 25 H 05/21/22 22:30 99/61 L 05/21/22 22:20 111 H 25 H 05/21/22 22:20 115/65 05/21/22 22:10 118 H 26 H 05/21/22 22:10 110/63 05/21/22 22:00 114 H 29 H 05/21/22 22:00 108/56 L 05/21/22 21:50 109 H 26 H 05/21/22 21:41 124 H 27 H 05/21/22 21:41 100/60 05/21/22 21:40 118 H 23 05/21/22 21:38 110 H 18 05/21/22 21:31 114 H 24 Laboratory Results 05/22/22 05/22/22 05/21/22 Range/Units 04:57 04:57 18:06 WBC 19.92 H (4.8-10.8) K/ul RBC 4.29 L (4.63-6.08) M/uL Hgb 14.1 (14.0-18.0) g/dl Hct 38.8 L (40.1-51.0) % MCV 90.4 (80.0-100.0) fL MCH 32.9 (25.0-34.0) pg MCHC 36.3 H (32.0-36.0) g/dL RDW Std Deviation 42.4 (36.4-46.3) fL RDW Coeff of Leena 12.8 (11.5-14.5) % Plt Count 107 L (130-400) K/uL MPV 11.6 (9.4-12.4) fL Immature Gran % (Auto) 0.9 % Neut % (Auto) 81.7 % Lymph % (Auto) 7.4 % [place] % (Auto) 7.7 % Eos % (Auto) 1.6 % Baso % (Auto) 0.7 % Neut # (Auto) 16.28 H (1.4-6.5) K/uL Lymph # (Auto) 1.47 (1.2-3.4) K/uL [place] # (Auto) 1.54 H (0.24-0.82) K/uL Eos # (Auto) 0.32 (0-0.50) K/uL Baso # (Auto) 0.14 (0-0.2) K/uL Immature Gran # (Auto) 0.17 H (0.00-0.02) K/uL Toxic Vacuolation 1+ Dohle Bodies 1+ Platelet Estimate Decreased L (Normal) Echinocytes 1+ Acanthocytes (Spur) 2+ Sodium 140 (136-145) mmol/L Potassium 3.7 (3.5-5.1) mmol/L Chloride 109 H (98-107) mmol/L Carbon Dioxide 27 (21-32) mmol/L Anion Gap 4 (3-11) BUN 24 H (6-23) mg/dl Creatinine 1.20 D (0.6-1.4) mg/dl Est Cr Clr Drug Dosing 88.9 ml/min Est GFR ( Amer) 100.3 ml/min Est GFR (Non-Af Amer) 86.5 ml/min BUN/Creatinine Ratio 20.0 (10-20) Glucose 86 (70-99(Fasting)) mg/dl POC Glucose (70-99) mg/dl POC Glucose (other) 82 (70-99) mg/dl Calcium 7.9 L (8.5-10.1) mg/dl Phosphorus 1.8 L D (2.5-4.9) mg/dl Magnesium 2.2 (1.7-2.4) mg/dl Total Bilirubin 1.8 H D (0.2-1.0) mg/dl Direct Bilirubin 0.5 H (0-0.2) mg/dl AST 50 H (13-39) U/L ALT 49 (7-52) U/L Alkaline Phosphatase 40 (34-104) U/L Total Protein 5.1 L (6.0-8.3) gm/dl Albumin 2.9 L (3.4-5.0) gm/dl Rheumatoid Factor Cycl Citrul Peptide IgG ISAAK Screen SS-A/Ro Antibody SS-B/La Antibody Sm (Roy) Antibody [employer] Antibody Scl-70 Scleroderma Ab Anti-ds DNA (Crithidia) Anti-Centromere Ab Complement C3 Complement C4 05/21/22 05/21/22 05/21/22 Range/Units 17:59 12:02 07:21 WBC (4.8-10.8) K/ul RBC (4.63-6.08) M/uL Hgb (14.0-18.0) g/dl Hct (40.1-51.0) % MCV (80.0-100.0) fL MCH (25.0-34.0) pg MCHC (32.0-36.0) g/dL RDW Std Deviation (36.4-46.3) fL RDW Coeff of Leena (11.5-14.5) % Plt Count (130-400) K/uL MPV (9.4-12.4) fL Immature Gran % (Auto) % Neut % (Auto) % Lymph % (Auto) % [place] % (Auto) % Eos % (Auto) % Baso % (Auto) % Neut # (Auto) (1.4-6.5) K/uL Lymph # (Auto) (1.2-3.4) K/uL [place] # (Auto) (0.24-0.82) K/uL Eos # (Auto) (0-0.50) K/uL Baso # (Auto) (0-0.2) K/uL Immature Gran # (Auto) (0.00-0.02) K/uL Toxic Vacuolation Dohle Bodies Platelet Estimate (Normal) Echinocytes Acanthocytes (Spur) Sodium (136-145) mmol/L Potassium (3.5-5.1) mmol/L Chloride (98-107) mmol/L Carbon Dioxide (21-32) mmol/L Anion Gap (3-11) BUN (6-23) mg/dl Creatinine (0.6-1.4) mg/dl Est Cr Clr Drug Dosing ml/min Est GFR ( Amer) ml/min Est GFR (Non-Af Amer) ml/min BUN/Creatinine Ratio (10-20) Glucose (70-99(Fasting)) mg/dl POC Glucose 36 L* (70-99) mg/dl POC Glucose (other) 101 H (70-99) mg/dl Calcium (8.5-10.1) mg/dl Phosphorus (2.5-4.9) mg/dl Magnesium (1.7-2.4) mg/dl Total Bilirubin (0.2-1.0) mg/dl Direct Bilirubin (0-0.2) mg/dl AST (13-39) U/L ALT (7-52) U/L Alkaline Phosphatase (34-104) U/L Total Protein (6.0-8.3) gm/dl Albumin (3.4-5.0) gm/dl Rheumatoid Factor Cycl Citrul Peptide IgG Cancelled ISAAK Screen SS-A/Ro Antibody SS-B/La Antibody Sm (Roy) Antibody [employer] Antibody Scl-70 Scleroderma Ab Anti-ds DNA (Crithidia) Anti-Centromere Ab Complement C3 Complement C4 05/21/22 Range/Units 07:21 WBC (4.8-10.8) K/ul RBC (4.63-6.08) M/uL Hgb (14.0-18.0) g/dl Hct (40.1-51.0) % MCV (80.0-100.0) fL MCH (25.0-34.0) pg MCHC (32.0-36.0) g/dL RDW Std Deviation (36.4-46.3) fL RDW Coeff of Leena (11.5-14.5) % Plt Count (130-400) K/uL MPV (9.4-12.4) fL Immature Gran % (Auto) % Neut % (Auto) % Lymph % (Auto) % [place] % (Auto) % Eos % (Auto) % Baso % (Auto) % Neut # (Auto) (1.4-6.5) K/uL Lymph # (Auto) (1.2-3.4) K/uL [place] # (Auto) (0.24-0.82) K/uL Eos # (Auto) (0-0.50) K/uL Baso # (Auto) (0-0.2) K/uL Immature Gran # (Auto) (0.00-0.02) K/uL Toxic Vacuolation Dohle Bodies Platelet Estimate (Normal) Echinocytes Acanthocytes (Spur) Sodium (136-145) mmol/L Potassium (3.5-5.1) mmol/L Chloride (98-107) mmol/L Carbon Dioxide (21-32) mmol/L Anion Gap (3-11) BUN (6-23) mg/dl Creatinine (0.6-1.4) mg/dl Est Cr Clr Drug Dosing ml/min Est GFR ( Amer) ml/min Est GFR (Non-Af Amer) ml/min BUN/Creatinine Ratio (10-20) Glucose (70-99(Fasting)) mg/dl POC Glucose (70-99) mg/dl POC Glucose (other) (70-99) mg/dl Calcium (8.5-10.1) mg/dl Phosphorus (2.5-4.9) mg/dl Magnesium (1.7-2.4) mg/dl Total Bilirubin (0.2-1.0) mg/dl Direct Bilirubin (0-0.2) mg/dl AST (13-39) U/L ALT (7-52) U/L Alkaline Phosphatase (34-104) U/L Total Protein (6.0-8.3) gm/dl Albumin (3.4-5.0) gm/dl Rheumatoid Factor Pending Cycl Citrul Peptide IgG Pending ISAAK Screen Pending SS-A/Ro Antibody Pending SS-B/La Antibody Pending Sm (Roy) Antibody Pending [employer] Antibody Pending Scl-70 Scleroderma Ab Pending Anti-ds DNA (Crithidia) Pending Anti-Centromere Ab Pending Complement C3 Pending Complement C4 Pending Diagnostic Findings Chest X-Ray 05/20/22 13:17 XR chest 1V portable HISTORY: Weakness. Tachycardia. COMPARISON: None. FINDINGS: No pneumothorax. No pleural effusions. The heart is normal in size. The trachea is midline. No acute fractures within the visualized osseous structures. The left lung is clear. Mild interstitial thickening within the right lung base. IMPRESSION: Mild interstitial thickening at the right lung base which could be due to the AP portable technique. A low-grade interstitial pneumonitis is not excluded. This will be better assessed on the same day abdomen and pelvis CT. ACT 112: Negative or not required by law. Electronically signed by: Dalton Drake M.D. 05/20/2022 2:58 PM Abdomen/Pelvis CT 05/20/22 15:[address] WITHOUT CONTRAST CT DOSE: 280.70 mGy.cm HISTORY: Acute nausea with vomiting and hypotension. Elevated LFTs v/d, hypotension, elev wbc, lfts TECHNIQUE: Multiaxial CT images of the abdomen and pelvis were performed without contrast. A dose lowering technique was utilized adhering to the principles of ALARA. COMPARISON STUDY: Chest radiograph of same day FINDINGS: Mild dependent subsegmental bibasilar atelectasis. No pneumatosis or pneumoperitoneum identified. The unenhanced spleen, pancreas and adrenal glands are unremarkable. Hyperdense material is noted within the gallbladder lumen. Equivocal gallbladder wall thickening without distention. The unenhanced liver is within normal limits. Mild bilateral hydroureter ureteronephrosis. No renal or ureteral calculi. Anteriorly displaced urinary bladder with circumferential wall thickening. The prostate measures within the upper limits of normal in size. Aorta and IVC are unremarkable. No lymphadenopathy identified. There is a large stool ball within the rectum measuring over 15 cm in length. The rectum is dilated and distended measuring up to 11 cm transversely. Circumferential wall thickening of the sigmoid and rectum with perirectal inflammatory stranding. Colonic fecal retention. There is a subcentimeter appendicolith present. No appendiceal dilation identified to suggest acute appendicitis. Scattered small bowel air-fluid levels within nondilated dilated loops are likely physiologic. Unremarkable soft tissues. Benign cystic structure of the L5 vertebral body. No acute fracture. IMPRESSION: 1. Constipation with marked fecal retention of the rectum resulting in associated stercoral proctitis. 2. The urinary bladder is displaced anteriorly. Circumferential wall thickening may represent cystitis. Correlate with urinalysis. 3. Mild bilateral hydronephrosis. No urolith. 4. Subcentimeter appendicolith is present. No CT evidence of acute appendicitis. 5. Hyperattenuating material within the gallbladder with equivocal gallbladder wall thickening. Findings could be correlated with ultrasound. 6. Additional findings as above. ACT 112: Negative or not required by law. The above report was generated using voice recognition software. It may contain grammatical, syntax or spelling errors. Electronically signed by: Elvin Terrell M.D. 05/20/2022 4:14 PM Chest X-Ray 05/21/22 09:52 XR chest 1V portable HISTORY: 21 years-old Male CVC placement status post placement of a right IJ central venous catheter COMPARISON: Chest radiograph 05/20/2022 TECHNIQUE: Portable AP view of the chest FINDINGS: Cardiac silhouette is enlarged. Right IJ venous catheter is noted with distal tip in the expected location of the inferior SVC. No pneumothorax, pleural effusion, airspace consolidation or overt pulmonary edema. Bones of the chest appear grossly intact. IMPRESSION: Status post placement of a right IJ central venous catheter with distal tip in the expected location of the inferior SVC. No postprocedural pneumothorax. ACT 112: Negative or not required by law. The above report was generated using voice recognition software. It may contain grammatical, syntax or spelling errors. Electronically signed by: Elvin Terrell M.D. 05/21/2022 10:46 AM
--- NOTE | 2022-05-22 10:16 | Critical Care Progress Note ---
Date of Service May 22, 2022 Assessment & Plan (1) RAMON (acute kidney injury): (2) Transaminitis: (3) Shock circulatory: (4) UTI (urinary tract infection): (5) Fecal impaction: (6) ADHD: Plan Chest x-ray 05/17/2022 personally reviewed: Portable film, good respiratory effort, bilateral costophrenic and cardiophrenic angles are clean. Reason Critically Ill: 21-year-old male presented to the hospital with complaints of nausea vomiting and diarrhea. Found to be hypotensive with RAMON. Transferred to ICU for further care Neuro - [facility] ICU: Negative Cardiac - --Shock Likely component of dehydration as well as septic Source could be UTI versus GI Continue with antibiotic to cover for gram-negative and anaerobes Patient got total of 4 L IV fluid in the ER Vasopressor support to keep MAP greater than 65 --Elevated troponin Likely type II SC EKG does not show any ST-T wave changes Continue to trend Respiratory - Patient is tachypneic most likely from underlying acidosis and pain No AA gradient on ABG AB.39/29/73 on room air GI - -- Transaminitis --> slowly trending down Elevated AST ALT along with T bili T bili 3.5 with indirect bilirubin 2.5 Hepatitis panel ordered -- Significant stool impaction with chronic constipation Continue with enema Surgery and GI has been consulted by ED Possibility of Hirschsprung disease is there --Diarrhea Is likely from overflow from the fecal impaction RENAL/LYTES - -- RAMON --> improving with good urine output Likely obstructive from the stool impaction pressing on the bladder Monitor BUN/creatinine Avoid nephrotoxic medications Strict ins and outs --Mild hydronephrosis bilaterally Again from stool impaction pressing on the bladder ENDO - ICU hypoglycemia protocol Random cortisol 58 Patient did get 100 mg of hydrocortisone in the ED HEME - --New onset thrombocytopenia Likely from underlying sepsis Hold heparin Continue to monitor Monitor H&H ID - -- Severe Sepsis from UTI E. coli pansensitive Source is likely UTI with possible proctocolitis Continue with empiric antibiotic coverage Procalcitonin greater than 200, follow-up blood culture and urine culture Zosyn changed to Rocephin 05/22/2022 COVID-19 NAAT negative Musculoskeletal - -- Left arm dorsal patch This likely represent ischemia as patient was getting Levophed from that site Will need to continue monitoring Patient has good pulse on the left arm. --Prophylaxis VTE:Heparin on hold GI: Protonix Lines: Peripheral Diet: Clear liquids, advance as tolerated Plan: In/out: - 891. urine output 3089 Pansensitive E. coli in the urine. We will change Zosyn to Rocephin to be given for total of 7-10 days. Patient's blood pressure is still labile. Continue vasopressor support to keep MAP greater than 65 Will give 500 bolus of Normosol followed by 200 mL an hour for 1 more liter. For total of 1.5 L Phosphorus is being replaced. Continue with enemas I have personally spent 33 minutes of critical care time in the direct management of this patient. This is a life/limb threatening event. This includes time spent evaluating patient, direct bedside care, chart review, placing orders, interpretation of diagnostic studies, discussion with consultants, patient, and family members, as well as other required patient management activities. This time is exclusive of all separately billable procedures, and teaching time and separate from and in addition to any other critical care service time. Admission and Anticipated Discharge Date Admission Date: May 20, 2022 Subjective Patient seen and examined at bedside. No acute distress, no adverse events overnight. He was sleeping when I entered the room. His blood pressure was with MAP of 62-63 He has been urinating well He did not have a good appetite. But he would said that he would like to eat more. Denies any nausea vomiting, no shortness of breath, no headache Is having bowel movements with enema which are mostly liquidy. Review of Systems Review of Systems: All systems reviewed & are unremarkable except as noted in Subjective Physical Exam Physical Exam: Constitutional: No acute distress HEENT: EOMI, PERRLA Respiratory system: Good air entry bilaterally, no wheeze, no rhonchi, no crackles CVS: S1-S2 positive, no murmurs or gallops, tachycardia Abdomen: Soft, nondistended, decreased bowel sounds, positive mild abdominal tenderness, no rebound Extremities: +2 pulses bilaterally radialis/ dorsalis pedis, no cyanosis, no edema, purple hue bilateral fingers Neuro: Awake alert oriented x3 Psych: Normal mood and affect G/U: No Carlson Musculoskeletal: Left dorsal arm patch, well demarcated could represent local ischemia of the skin tissue Skin: no rashes, warm and dry Lymphatic: no cervical or axillary lymphadenopathy Results & Data Results & Data ([facility]) Vital Signs (Past 12 Hours) Vital Signs Temp Pulse Resp BP 05/22/22 06:30 118 H 24 05/22/22 06:20 105 H 21 05/22/22 06:10 95 H 24 05/22/22 06:00 100 H 21 05/22/22 06:00 101/57 L 05/22/22 05:50 105 H 25 H 05/22/22 05:40 112 H 25 H 05/22/22 05:30 99 H 22 05/22/22 05:20 91 H 05/22/22 05:17 88/45 L 05/22/22 05:17 87 05/22/22 05:10 93 H 05/22/22 05:00 97 H 24 05/22/22 05:00 100/51 L 05/22/22 04:40 103 H 25 H 05/22/22 04:30 103 H 05/22/22 04:20 96 H 05/22/22 04:10 97 H 20 05/22/22 04:00 103 H 17 05/22/22 04:00 98/48 L 05/22/22 03:50 114 H 21 05/22/22 03:40 109 H 24 05/22/22 03:30 113 H 19 05/22/22 03:20 103 H 20 05/22/22 03:10 99 H 23 05/22/22 03:00 125 H 25 H 05/22/22 03:00 91/57 L 05/22/22 02:50 97 H 05/22/22 02:40 109 H 15 05/22/22 02:30 109 H 27 H 05/22/22 02:20 108 H 26 H 05/22/22 02:10 105 H 30 H 05/22/22 02:00 117 H 22 05/22/22 02:00 92/56 L 05/22/22 01:50 114 H 24 05/22/22 01:40 125 H 21 05/22/22 01:30 114 H 27 H 05/22/22 01:20 110 H 25 H 05/22/22 01:10 120 H 20 05/22/22 01:00 105 H 19 05/22/22 01:00 94/57 L 05/22/22 00:50 101 H 22 05/22/22 00:40 121 H 20 05/22/22 00:30 117 H 26 H 05/22/22 00:20 117 H 19 05/22/22 04:09 37.1 C 05/22/22 01:06 37.2 C 05/22/22 00:15 100/50 L 05/22/22 00:15 118 H 25 H 05/22/22 00:10 116 H 23 05/22/22 00:00 111 H 23 05/21/22 23:50 106 H 23 05/21/22 23:40 105 H 23 05/21/22 23:30 102 H 23 05/21/22 23:20 101 H 24 05/21/22 23:10 103 H 24 05/21/22 23:01 99/37 L 05/21/22 23:01 113 H 20 05/21/22 23:00 104 H 24 05/21/22 22:53 107 H 28 H 05/21/22 22:51 111 H 28 H 05/21/22 22:50 120 H 20 05/21/22 22:41 111/76 05/21/22 22:41 119 H 29 H 05/21/22 22:40 120 H 16 05/21/22 22:30 111 H 25 H 05/21/22 22:30 99/61 L 05/21/22 22:20 111 H 25 H 05/21/22 22:20 115/65 05/21/22 22:10 118 H 26 H 05/21/22 22:10 110/63 Laboratory Results 05/22/22 04:57 05/22/22 04:57 Coding Level of Care Code Critical Care 1st 30-74 mins Diagnoses RAMON (acute kidney injury) N17.9 Transaminitis R74.01 Shock circulatory R57.9 UTI (urinary tract infection) N39.0 Hematuria presence: without hematuria Urinary tract infection type: site unspecified Fecal impaction K56.41 ADHD F90.9 Time Spent (min) 33 (1) UTI (urinary tract infection) Hematuria presence: without hematuria Urinary tract infection type: site unspecified Qualified Code(s): N39.0 - Urinary tract infection, site not specified
[2022-05-22] MEDS ORDERED: cefTRIAXone SODIUM 2,000 MG in DEXTROSE 5% 50 ML IV SCH (12:00)
[2022-05-22] MEDS: MINERAL OIL ENEMA 133 ML BTL PR PRN (13:19)
--- NOTE | 2022-05-22 14:11 | Hospitalist Progress Note ---
Date of Service May 22, 2022 Assessment & Plan (1) Sepsis: (2) Shock circulatory: Plan: Patient is 21 y/o M with PMH ADHD, chronic constipation presented to ER with c/o N/V/D x 1 day. Patient states yesterday started with nausea, vomiting and diarrhea. Denies any vomiting today. Today lethargic and weak, chills. In ER patient hypotensive and tachycardic and was reported to be mottled. Was given 2L LR and 2L NSS with SBPs reported down to 50s and was started on Levophed with SBPs up to 90's. WBC 21, lactate: 3.5, procalcitonin > 200, UA consistent with possible UTI. Negative SARS-CoV-2 NAAT. CXR: Mild interstitial thickening RLL. CT abdomen/pelvis: Constipation with marked fecal retention of rectum with associated stercoral proctitis. Urinary bladder wall thickening. Mild bilateral hydronephrosis, no urolith. No CT evidence of acute appendicitis. Hyperattenuating material within the gallbladder with equivocal gallbladder wall thickening. In ER patient BP improving on Levophed, Vasopressin added in ICU Continued on Zosyn, now switched to ceftriaxone off pressors for 24 hours, downgraded to PCU status. (3) RAMON (acute kidney injury): Plan: Pres-renal azotemia in sepsis. Resolved to baseline after resuscitation. Monitor renal function, avoid nephrotoxic agents when possible (4) Elevated LFTs: Plan: Likely related to shock, improved. Hyperbilirubinemia improved with resuscitation. (5) Elevated troponin I level: Plan: High-sensitivity troponin: 134.7 EKG: Sinus tachycardia, no acute ST elevation noted May be secondary to demand in setting of sepsis. Pt has had no chest pain or ACS symptoms this admission. (6) Fecal impaction: Plan: History of chronic constipation CT abdomen pelvis: Significant constipation with fecal retention of rectum ?Reported diarrhea may be secondary to overflow from constipation GI helping with management of this. Cont enema PRN. Encouraged to ambulate frequently. DVT Prophylaxis Heparin SQ Full Dispo-to PCU. Mom was at bedside and updated her on plan/gave expectations of remaining hospital stay. Rekha Carrero DO [facility] Hospitalist Admission and Anticipated Discharge Date Admission Date: May 20, 2022 Subjective 21 yo M admitted wtih severe constipation and urosepsis off pressors since afternoon of 05/21 Feeling well Overflow diarrhea reported up and out of bed today tolerating clear liquid diet-clears only per GI Review of Systems Review of Systems: All systems reviewed negative except as indicated above. Physical Exam Physical Exam: CONSTITUTIONAL: WNWD, vitals as above, generally well- appearing, NAD EYES: normal conjunctivae, no scleral icterus, ENT: external ear and nose normal, MMM, right IJ in place NECK: trachea midline, RESPIRATORY: clear to auscultation bilaterally, no crackles, rales or wheezes, normal respiratory effort CARDIOVASCULAR: regular rate and rhythm, S1 and 2 heard without murmurs, gallops or rubs, no JVD, no peripheral edema, CHEST: inspection of chest was normal GASTROINTESTINAL: soft, nontender, no guarding MUSCULOSKELETAL: strength 5/5 throughout, head is normocephalic and atraumatic, SKIN: warm and dry, linear purple rash on LUE on forearm. There is a slight erythema around the border where the purple stops and this is a well demarcated area. New since blood draw attempts per patient. NEUROLOGIC: CN 2-12 grossly intact, no sensory deficit, normal cognition, normal speech, no tremor PSYCHIATRIC: alert cooperative and oriented to person, place and time. Results & Data Results & Data ([facility]) Vital Signs (Past 12 Hours) Vital Signs Temp Pulse Resp BP Pulse Ox O2 Del Method 05/22/22 10:01 119 H 20 116/40 L 05/22/22 09:00 103 H 25 H 110/54 L 05/22/22 08:00 118 H 23 86/58 L 05/22/22 07:23 109 H 20 88/50 L 99 Room Air 05/22/22 08:00 36.8 C 05/22/22 08:00 112 H 05/22/22 08:00 112 H 05/22/22 06:30 118 H 24 05/22/22 06:20 105 H 21 05/22/22 06:10 95 H 24 05/22/22 06:00 100 H 05/22/22 06:00 101/57 L 05/22/22 05:50 105 H 25 H 05/22/22 05:40 112 H 25 H 05/22/22 05:30 99 H 22 05/22/22 05:20 91 H 05/22/22 05:17 88/45 L 05/22/22 05:17 87 21 05/22/22 05:10 93 H 21 05/22/22 05:00 97 H 24 05/22/22 05:00 100/51 L 05/22/22 04:40 103 H 25 H 05/22/22 04:30 103 H 23 05/22/22 04:20 96 H 23 05/22/22 04:10 97 H 20 05/22/22 04:00 103 H 17 05/22/22 04:00 98/48 L 05/22/22 03:50 114 H 21 05/22/22 03:40 109 H 24 05/22/22 03:30 113 H 19 05/22/22 03:20 103 H 20 05/22/22 03:10 99 H 05/22/22 03:00 125 H 25 H 05/22/22 03:00 91/57 L 05/22/22 02:50 97 H 05/22/22 02:40 109 H 15 05/22/22 02:30 109 H 27 H 05/22/22 02:20 108 H 26 H 05/22/22 04:09 37.1 C Laboratory Results Short CBC 05/22/22 Range/Units 04:57 WBC 19.92 H (4.8-10.8) K/ul Hgb 14.1 (14.0-18.0) g/dl Hct 38.8 L (40.1-51.0) % Plt Count 107 L (130-400) K/uL BMP 05/22/22 04:57 Sodium 140 Potassium 3.7 Chloride 109 H Carbon Dioxide 27 BUN 24 H Creatinine 1.20 D Glucose 86 Calcium 7.9 L Liver Function 05/22/22 Range/Units 04:57 Total Bilirubin 1.8 H D (0.2-1.0) mg/dl Direct Bilirubin 0.5 H (0-0.2) mg/dl AST 50 H (13-39) U/L ALT 49 (7-52) U/L Alkaline Phosphatase 40 (34-104) U/L Albumin 2.9 L (3.4-5.0) gm/dl Medications Administered Current Inpatient Medications Heparin Sodium (Porcine) (Heparin Sod 5,000 Unit/0.5 Ml Vial) 5,000 units SQ Q12 [facility] Stop: 06/20/22 08:59 Last Admin: 05/22/22 08:56 Dose: 5,000 units Norepinephrine Bitartrate (Levophed/D5w) 4 mg in 250 mls @ 10.706 mls/hr IV .[id number] [facility]; Protocol Stop: 06/19/22 14:29 Last Titration: 05/21/22 19:11 Dose: 0 mcg/kg/min, 0 mls/hr Vasopressin 20 units/ Sodium (Chloride) 101 mls @ 0 mls/hr IV .Q0M [facility] Stop: 06/19/22 16:44 Last Admin: 05/21/22 21:11 Dose: Not Given Acetaminophen (Ofirmev) 65 mls @ 260 mls/hr IV Q6H PRN PRN Reason: Fever Stop: 05/23/22 17:14 Last Infusion: 05/21/22 06:38 Dose: Infused Ceftriaxone Sodium 2,000 mg/ (Dextrose) 70 mls @ 100 mls/hr IV Q24H [facility]; Protocol Stop: 05/26/22 11:59 Last Infusion: 05/22/22 12:22 Dose: Infused Mineral Oil (Mineral Oil Enema 133 Ml Btl) 133 ml IN Q8H PRN PRN Reason: Constipation Stop: 06/20/22 08:44 Last Admin: 05/22/22 13:19 Dose: 133 ml Miscellaneous (Icu Protocol For Hyperglycemia) 1 each N/A PRN PRN; Protocol PRN Reason: Hyperglycemia Protocol Stop: 05/22/22 18:29 Petrolatum (Butt Paste (Zinc Oxide 16%) 171 Appln/57 Gm Jar) 1 appln EXT UD PRN PRN Reason: rectal irritation Stop: 06/21/22 08:59
[2022-05-22] MEDS: NOREPINEPHRINE/D5W 4 MG/250 ML PLCT IV SCH (14:12)
[2022-05-22] MEDS ORDERED: ACETAMINOPHEN 325 MG TAB PO PRN (17:16)
[2022-05-22 19:36] LABS: HBSAG NON-REACTIVE (NON-REACTIVE); Hepatitis A Antibody IgM NON-REACTIVE (NON-REACTIVE); Hepatitis B Core Antibody IgM NON-REACTIVE (NON-REACTIVE)
[2022-05-23 06:32] LABS: Hematocrit (blood only) 39.1 % (40.1-51.0); Hemoglobin 13.9 g/dl (14.0-18.0); Mean Corpuscular Hemoglobin 32.5 pg (25.0-34.0); Mean Corpuscular Hgb Conc 35.5 g/dL (32.0-36.0); Mean Corpuscular Volume 91.4 fL (80.0-100.0); Mean Platelet Volume 11.8 fL (9.4-12.4); Platelet Count 108 K/uL (130-400); RDW Coefficient of Variation 13.1 % (11.5-14.5); RDW Standard Deviation 44.1 fL (36.4-46.3); Red Blood Count 4.28 M/uL (4.63-6.08); White Blood Count 16.89 K/ul (4.8-10.8)
[2022-05-23 06:39] LABS: Basophils # (auto) 0.08 K/uL (0-0.2); Basophils % (auto) 0.5 %; Eosinophils # (auto) 0.02 K/uL (0-0.50); Eosinophils % (auto) 0.1 %; Immature Granulocytes # (auto) 0.16 K/uL (0.00-0.02); Immature Granulocytes % (auto) 0.9 %; Lymphocytes # (auto) 1.86 K/uL (1.2-3.4); Monocytes % (auto) 5.9 %; Neutrophils # (auto) 13.77 K/uL (1.4-6.5); Neutrophils % (auto) 81.6 %
[2022-05-23 06:40] LABS: Calcium 8.1 mg/dl (8.5-10.1); Est GFR (Non-African American) 107.9 ml/min; Magnesium 1.8 mg/dl (1.7-2.4); Phosphorus 2.5 mg/dl (2.5-4.9); Potassium 3.6 mmol/L (3.5-5.1)
[2022-05-23] MEDS: PIPERACILLIN/TAZOBACTAM 3.375 GM in DEXTROSE 5% 100 ML IV SCH ×2 (10:21→17:06)
--- NOTE | 2022-05-23 15:12 | Gastroenterology Progress Note ---
Date of Service May 23, 2022 Assessment & Plan (1) Constipation: Plan: I don't know if he is getting cleaned out but I will give him something to work on cleaning him out. Will start slowly with Magnesium citrate. If that doesn't work will do colonoscopy prep. Told him when he goes home he will need to take miralax daily. Present on Admission?: Yes Admission and Anticipated Discharge Date Admission Date: May 20, 2022 Subjective Very difficult to glean what is going on from what he tells me. Asked about bowel movements--"they're okay". Asked if he is getting cleaned out--"slowly but surely". Says he feels okay. Can't really quantify how much stool he is passing Physical Exam Constitutional: WD/WN, vitals as above well developed, well nourished and cooperative Results & Data ([facility]) Vital Signs (Past 12 Hours) Vital Signs Temp Pulse Pulse Resp BP Pulse Ox O2 Del Method 05/23/22 15:04 77 05/23/22 11:46 37.8 C H 69 18 103/67 95 Room Air 05/23/22 09:38 Room Air 05/23/22 07:37 80 05/23/22 07:21 38 C H 76 18 108/69 95 Room Air 05/23/22 04:21 37.8 C H 81 18 103/64 96 Room Air
[2022-05-23] MEDS: LAVAGE SOLUTION 4000ML PO SCH ×6 (17:09→19:26)
--- NOTE | 2022-05-23 17:53 | Hospitalist Progress Note ---
Date of Service May 23, 2022 Assessment & Plan (1) Sepsis: (2) Shock circulatory: Plan: Patient is 21 y/o M with PMH ADHD, chronic constipation presented to ER with c/o N/V/D x 1 day. Patient states yesterday started with nausea, vomiting and diarrhea. Denies any vomiting today. Today lethargic and weak, chills. In ER patient hypotensive and tachycardic and was reported to be mottled. Was given 2L LR and 2L NSS with SBPs reported down to 50s and was started on Levophed with SBPs up to 90's. WBC 21, lactate: 3.5, procalcitonin > 200, UA consistent with possible UTI. Negative SARS-CoV-2 NAAT. CXR: Mild interstitial thickening RLL. CT abdomen/pelvis: Constipation with marked fecal retention of rectum with associated stercoral proctitis. Urinary bladder wall thickening. Mild bilateral hydronephrosis, no urolith. No CT evidence of acute appendicitis. Hyperattenuating material within the gallbladder with equivocal gallbladder wall thickening. In ER patient BP improving on Levophed, Vasopressin added in ICU Continued on Zosyn,switched to ceftriaxone on 05/22 but now spiking fevers this am Changed back to zosyn in the meantime until fecal obstruction better cleared. Still reporting diarrhea-denies abdominal pain Cont with abx and efforts to clear up constipation per GI. (3) RAMON (acute kidney injury): Plan: Pre-renal azotemia in sepsis. Resolved to baseline after resuscitation. Monitor renal function, avoid nephrotoxic agents when possible (4) Elevated LFTs: Plan: Likely related to shock, improved. Hyperbilirubinemia improved with resuscitation. (5) Elevated troponin I level: Plan: High-sensitivity troponin: 134.7 EKG: Sinus tachycardia, no acute ST elevation noted May be secondary to demand in setting of sepsis. Pt has had no chest pain or ACS symptoms this admission. (6) Fecal impaction: Plan: History of chronic constipation CT abdomen pelvis: Significant constipation with fecal retention of rectum ?Reported diarrhea may be secondary to overflow from constipation GI helping with management of this. Cont enema PRN. clear liquid diet. Starting mag citrate. Encouraged to ambulate frequently. DVT Prophylaxis Heparin SQ Full Dispo-to PCU. Mom was at bedside and updated her on plan/gave expectations of remaining hospital stay. DO [facility] Hospitalist Admission and Anticipated Discharge Date Admission Date: May 20, 2022 Subjective 21 yo M admitted wtih severe constipation and urosepsis spike in temp this morning after zosyn change to Rocephin yesterday Tmax was 38 tracked for most of the morning, however, patient denied any fevers or chills Feeling well this afternoon diarrhea reported and says there is some more formed stool that he is seeing. up and out of bed today and this was encouraged. tolerating clear liquid diet-clears only per GI while trying to clear feval obstruction Review of Systems Review of Systems: All systems reviewed negative except as indicated above. Physical Exam Physical Exam: CONSTITUTIONAL: WNWD, vitals as above, generally well- appearing, NAD EYES: normal conjunctivae, no scleral icterus, ENT: external ear and nose normal, MMM, right IJ in place NECK: trachea midline, RESPIRATORY: clear to auscultation bilaterally, no crackles, rales or wheezes, normal respiratory effort CARDIOVASCULAR: regular rate and rhythm, S1 and 2 heard without murmurs, gallops or rubs, no JVD, no peripheral edema, CHEST: inspection of chest was normal GASTROINTESTINAL: soft, nontender, no guarding MUSCULOSKELETAL: strength 5/5 throughout, head is normocephalic and atraumatic, SKIN: warm and dry, linear purple rash on LUE on forearm-appears to be healing. There is a slight erythema around the border where the purple stops and this is a well demarcated area. New since blood draw attempts per patient. NEUROLOGIC: CN 2-12 grossly intact, no sensory deficit, normal cognition, normal speech, no tremor PSYCHIATRIC: alert cooperative and oriented to person, place and time. Results & Data Results & Data ([facility]) Vital Signs (Past 12 Hours) Vital Signs Temp Pulse Pulse Resp BP Pulse Ox O2 Del Method 05/23/22 15:08 36.9 C 81 18 107/66 96 Room Air 05/23/22 15:04 77 05/23/22 11:46 37.8 C H 69 18 103/67 95 Room Air 05/23/22 09:38 Room Air 05/23/22 07:37 80 05/23/22 07:21 38 C H 76 18 108/69 95 Room Air Laboratory Results Short CBC 05/23/22 Range/Units 05:16 WBC 16.89 H (4.8-10.8) K/ul Hgb 13.9 L (14.0-18.0) g/dl Hct 39.1 L (40.1-51.0) % Plt Count 108 L (130-400) K/uL [facility] 05/23/22 05:16 Sodium 141 Potassium 3.6 Chloride 109 H Carbon Dioxide 26 BUN 13 Creatinine 1.00 Glucose 79 Calcium 8.1 L Medications Administered Current Inpatient Medications Acetaminophen (Acetaminophen 325 Mg Tab) 650 mg PO Q4H PRN PRN Reason: pain/fever Stop: 06/21/22 17:15 Heparin Sodium (Porcine) (Heparin Sod 5,000 Unit/0.5 Ml Vial) 5,000 units SQ Q12 [facility] Stop: 06/20/22 08:59 Last Admin: 05/22/22 08:56 Dose: 5,000 units Piperacillin Sod/Tazobactam (Sod 3.375 gm/ Dextrose) 115 mls @ 28.75 mls/hr IV Q8H [facility]; Protocol Stop: 06/02/22 09:29 Last Admin: 05/23/22 17:06 Dose: 28.8 mls/hr Mineral Oil (Mineral Oil Enema 133 Ml Btl) 133 ml WI Q8H PRN PRN Reason: Constipation Stop: 06/20/22 08:44 Last Admin: 05/22/22 13:19 Dose: 133 ml Petrolatum (Butt Paste (Zinc Oxide 16%) 171 Appln/57 Gm Jar) 1 appln EXT UD PRN PRN Reason: rectal irritation Stop: 06/21/22 08:59 Polyethylene Glycol/Electrolytes (Lavage Solution 4000ml) 1 dose PO Q15M [facility] Stop: 05/23/22 19:31 Last Admin: 05/23/22 17:09 Dose: 1 dose
[2022-05-24] MEDS: PIPERACILLIN/TAZOBACTAM 3.375 GM in DEXTROSE 5% 100 ML IV SCH ×3 (00:58→17:59)
[2022-05-24 06:42] LABS: Basophils # (auto) 0.11 K/uL (0-0.2); Basophils % (auto) 0.9 %; Eosinophils # (auto) 0.21 K/uL (0-0.50); Eosinophils % (auto) 1.7 %; Hematocrit (blood only) 40.7 % (40.1-51.0); Hemoglobin 14.6 g/dl (14.0-18.0); Immature Granulocytes # (auto) 0.51 K/uL (0.00-0.02); Immature Granulocytes % (auto) 4.1 %; Lymphocytes # (auto) 2.04 K/uL (1.2-3.4); Lymphocytes % (auto) 16.2 %; Mean Corpuscular Hemoglobin 32.6 pg (25.0-34.0); Mean Corpuscular Hgb Conc 35.9 g/dL (32.0-36.0); Mean Corpuscular Volume 90.8 fL (80.0-100.0); Mean Platelet Volume 11.3 fL (9.4-12.4); Monocytes # (auto) 1.52 K/uL (0.24-0.82); Monocytes % (auto) 12.1 %; Neutrophils # (auto) 8.18 K/uL (1.4-6.5); Platelet Count 116 K/uL (130-400); RDW Coefficient of Variation 12.9 % (11.5-14.5); RDW Standard Deviation 42.9 fL (36.4-46.3); Red Blood Count 4.48 M/uL (4.63-6.08); White Blood Count 12.57 K/ul (4.8-10.8)
[2022-05-24 06:44] LABS: Albumin Globulin Ratio 1.3 (0.9-2); Albumin Level 3.3 gm/dl (3.4-5.0); BUN Creatinine Ratio 11.8 (10-20); Calcium 8.2 mg/dl (8.5-10.1); Creatinine Clr Calc Pharmacy 85.6 ml/min; Est GFR (African American) 122.1 ml/min; Est GFR (Non-African American) 105.3 ml/min; Globulin 2.5 gm/dl (2.5-4.0); Potassium 3.4 mmol/L (3.5-5.1); Total Protein 5.8 gm/dl (6.0-8.3)
[2022-05-24] MEDS ORDERED: POTASSIUM CHLORIDE CRTAB 20 MEQ TABCR PO ONE (10:00)
--- NOTE | 2022-05-24 11:51 | Gastroenterology Progress Note ---
Date of Service May 24, 2022 Assessment & Plan (1) Fecal impaction: Plan: He is not making much effort to drink the colyte. Encouraged him further. Will see if he drinks it and what it does. Would probably plan KUB tomorrow to reassess fecal load. Present on Admission?: Yes (2) Constipation: Plan: see above Admission and Anticipated Discharge Date Admission Date: May 20, 2022 Subjective Has only consumed less than a fourth of the colyte. Not moving his bowels much. Doesn't like the taste Physical Exam Constitutional: WD/WN, vitals as above Results & Data ([facility]) Vital Signs (Past 12 Hours) Vital Signs Temp Pulse Pulse Resp BP Pulse Ox O2 Del Method 05/24/22 07:50 37.1 C 72 18 108/68 94 Room Air 05/24/22 03:03 37.4 C 70 20 101/66 96 Room Air 05/24/22 00:00 76 Laboratory Results LFT's are normal
--- NOTE | 2022-05-24 15:17 | Hospitalist Progress Note ---
Date of Service May 24, 2022 Assessment & Plan (1) Sepsis: (2) Shock circulatory: Plan: Patient is 21 y/o M with PMH ADHD, chronic constipation presented to ER with c/o N/V/D x 1 day. Patient states yesterday started with nausea, vomiting and diarrhea. Denies any vomiting today. Today lethargic and weak, chills. In ER patient hypotensive and tachycardic and was reported to be mottled. Was given 2L LR and 2L NSS with SBPs reported down to 50s and was started on Levophed with SBPs up to 90's. WBC 21, lactate: 3.5, procalcitonin > 200, UA consistent with possible UTI. Negative SARS-CoV-2 NAAT. CXR: Mild interstitial thickening RLL. CT abdomen/pelvis: Constipation with marked fecal retention of rectum with associated stercoral proctitis. Urinary bladder wall thickening. Mild bilateral hydronephrosis, no urolith. No CT evidence of acute appendicitis. Hyperattenuating material within the gallbladder with equivocal gallbladder wall thickening. In ER patient BP improving on Levophed, Vasopressin added in ICU Continued on Zosyn,switched to ceftriaxone on 05/22 when he was downgraded to PCU status but because of fevers the following morning, Changed back to zosyn in the meantime until fecal obstruction better cleared. Still reporting diarrhea-denies abdominal pain Cont with abx and efforts to clear up constipation per GI. (3) UTI (urinary tract infection): Plan: E coli UTI-cont abx as above. (4) RAMON (acute kidney injury): Plan: Pre-renal azotemia in sepsis. Resolved to baseline after resuscitation. Monitor renal function, avoid nephrotoxic agents when possible (5) Elevated LFTs: Plan: Likely related to shock, improved. Hyperbilirubinemia improved with resuscitation. (6) Elevated troponin I level: Plan: High-sensitivity troponin: 134.7 EKG: Sinus tachycardia, no acute ST elevation noted May be secondary to demand in setting of sepsis. Pt has had no chest pain or ACS symptoms this admission. (7) Fecal impaction: Plan: History of chronic constipation CT abdomen pelvis: Significant constipation with fecal retention of rectum ?Reported diarrhea may be secondary to overflow from constipation GI helping with management of this. Cont enema PRN. Clear liquid diet. Starting mag citrate. Encouraged to ambulate frequently. DVT Prophylaxis Heparin SQ Full Dispo-to floor and continue to encourage ambulation to help with constipation. Mom was at bedside and updated her on plan/gave expectations of remaining hospital stay. DO Ridge Morales Hospitalist Admission and Anticipated Discharge Date Admission Date: May 20, 2022 Subjective 21 yo M admitted wtih severe constipation and urosepsis Feeling well this afternoon some persistent fecal stool ball retention with overflow diarrhea not getting Golytely prep down fast uncertain how much ambulating he has done today Mom present at bedside right IJ removed today afebrile and no chills. Review of Systems Review of Systems: All systems reviewed negative except as indicated above. Physical Exam Physical Exam: CONSTITUTIONAL: WNWD, vitals as above, generally well- appearing, NAD EYES: normal conjunctivae, no scleral icterus, ENT: external ear and nose normal, MMM, right IJ in place NECK: trachea midline, RESPIRATORY: clear to auscultation bilaterally, no crackles, rales or wheezes, normal respiratory effort CARDIOVASCULAR: regular rate and rhythm, S1 and 2 heard without murmurs, gallops or rubs, no JVD, no peripheral edema, CHEST: inspection of chest was normal GASTROINTESTINAL: soft, nontender, no guarding MUSCULOSKELETAL: strength 5/5 throughout, head is normocephalic and atraumatic, SKIN: warm and dry, linear purple rash on LUE on forearm-appears to be healing. NEUROLOGIC: CN 2-12 grossly intact, no sensory deficit, normal cognition, normal speech, no tremor PSYCHIATRIC: alert cooperative and oriented to person, place and time. Results & Data Results & Data ([facility]) Vital Signs (Past 12 Hours) Vital Signs Temp Pulse Resp BP Pulse Ox O2 Del Method 05/24/22 12:00 36.8 C 71 18 111/75 97 Room Air 05/24/22 07:50 37.1 C 72 18 108/68 94 Room Air Laboratory Results Short CBC 05/24/22 Range/Units 05:40 WBC 12.57 H (4.8-10.8) K/ul Hgb 14.6 (14.0-18.0) g/dl Hct 40.7 (40.1-51.0) % Plt Count 116 L (130-400) K/uL BMP 05/24/22 05:40 Sodium 138 Potassium 3.4 L Chloride 105 Carbon Dioxide 27 BUN 12 Creatinine 1.02 Glucose 84 Calcium 8.2 L Liver Function 05/24/22 Range/Units 05:40 Total Bilirubin 1.0 (0.2-1.0) mg/dl AST 32 (13-39) U/L ALT 32 (7-52) U/L Alkaline Phosphatase 74 (34-104) U/L Albumin 3.3 L (3.4-5.0) gm/dl Medications Administered Current Inpatient Medications Acetaminophen (Acetaminophen 325 Mg Tab) 650 mg PO Q4H PRN PRN Reason: pain/fever Stop: 06/21/22 17:15 Heparin Sodium (Porcine) (Heparin Sod 5,000 Unit/0.5 Ml Vial) 5,000 units SQ Q12 CARMINE Stop: 06/20/22 08:59 Last Admin: 05/22/22 08:56 Dose: 5,000 units Piperacillin Sod/Tazobactam (Sod 3.375 gm/ Dextrose) 115 mls @ 28.75 mls/hr IV Q8H CARMINE; Protocol Stop: 06/02/22 09:29 Last Infusion: 05/24/22 13:41 Dose: Infused Mineral Oil (Mineral Oil Enema 133 Ml Btl) 133 ml ID Q8H PRN PRN Reason: Constipation Stop: 06/20/22 08:44 Last Admin: 05/22/22 13:19 Dose: 133 ml Petrolatum (Butt Paste (Zinc Oxide 16%) 171 Appln/57 Gm Jar) 1 appln EXT UD PRN PRN Reason: rectal irritation Stop: 06/21/22 08:59 (1) UTI (urinary tract infection) Hematuria presence: without hematuria Urinary tract infection type: site unspecified Qualified Code(s): N39.0 - Urinary tract infection, site not specified
[2022-05-25] MEDS: PIPERACILLIN/TAZOBACTAM 3.375 GM in DEXTROSE 5% 100 ML IV SCH ×2 (02:07→08:31)
[2022-05-25] MEDS: HEPARIN SOD 5,000 UNIT/0.5 ML VIAL SQ SCH ×2 (08:31→20:29)
[2022-05-25] MEDS ORDERED: POTASSIUM CHLORIDE CRTAB 20 MEQ TABCR PO STA (09:10)
--- NOTE | 2022-05-25 10:55 | XRay Report ---
XR KUB/Abdomen 1 view CLINICAL HISTORY: f/u fecal impaction TECHNIQUE: 1 view of the abdomen was obtained. Comparison: Comparison is made to CT abdomen pelvis 05/20/2022 FINDINGS: Lung bases are unremarkable. The osseous structures are grossly unremarkable. The bowel gas pattern i s nonobstructive. A prominent stool ball is again seen in the pelvis measuring approximately 11 cm in diameter, similar to prior exam. IMPRESSION: Redemonstration of prominent stool ball in the rectum, similar to prior exam. ACT 112: Negative or not required by law. Electronically signed by: Noble Vargas M.D. 05/25/2022 10:53 AM
--- NOTE | 2022-05-25 12:34 | Gastroenterology Progress Note ---
Date of Service May 25, 2022 Assessment & Plan (1) Fecal impaction: Plan: He is not cooperating with his health care. I understand that he isn't concerned about his constipation. I can't drink the colyte for him and I explained that to him. I told him he needs to make his decision as to whether he wants to drink it. I would get KUB after he drinks it to reassess. If he isn't going to drink it there really isn't much else to do. I would advance diet then and discharge him with instructions to take miralax daily Admission and Anticipated Discharge Date Admission Date: May 20, 2022 Subjective Hasn't consumed any colyte since I saw him yesterday. Says "bowels are moving but not real solid" Physical Exam Constitutional: WD/WN, vitals as above Results & Data ([facility]) Vital Signs (Past 12 Hours) Vital Signs Temp Pulse Resp BP Pulse Ox O2 Del Method 05/25/22 07:20 36.8 C 71 18 96/61 L 97 Room Air
[2022-05-25] MEDS: metroNIDAZOLE 500 MG/100 ML BAG IV SCH (16:40)
[2022-05-25] MEDS: cefTRIAXone SODIUM 2,000 MG in DEXTROSE 5% 50 ML IV SCH (16:40)
--- NOTE | 2022-05-25 17:17 | Hospitalist Progress Note ---
Date of Service May 25, 2022 Assessment & Plan (1) Sepsis: (2) Shock circulatory: Plan: Patient is 21 y/o M with PMH ADHD, chronic constipation presented to ER with c/o N/V/D x 1 day. Patient stated that it started with nausea, vomiting and diarrhea 1 day prior. Denied any vomiting on the day of arrival. On the day of arrival, pt was lethargic and weak, chills. In ER patient hypotensive and tachycardic and was reported to be mottled. Was given 2L LR and 2L NSS with SBPs reported down to 50s and was started on Levophed with SBPs up to 90's. WBC 21, lactate: 3.5, procalcitonin > 200, UA consistent with possible UTI. Neg ative SARS-CoV-2 NAAT. CXR: Mild interstitial thickening RLL. CT abdomen/pelvis: Constipation with marked fecal retention of rectum with associated stercoral proctitis. Urinary bladder wall thickening. Mild bilateral hydronephrosis, no urolith. No CT evidence of acute appendicitis. Hyperattenuating material within the gallbladder with equivocal gallbladder wall thickening. In ER patient BP improving on Levophed, Vasopressin added in ICU Continued on Zosyn,switched to ceftriaxone on 05/22 when he was downgraded to PCU status but because of fevers the following morning, Changed back to zosyn, will descalate to rocephin and metron. Reporting likely overflow bowel movement from constipation-denies abdominal pain Cont with abx and efforts to clear up constipation per GI. (3) UTI (urinary tract infection): Plan: E coli UTI-cont abx as above. (4) RAMON (acute kidney injury): Plan: Pre-renal azotemia in sepsis. Resolved to baseline after resuscitation. Monitor renal function, avoid nephrotoxic agents when possible (5) Elevated LFTs: Plan: Likely related to shock, improved. Hyperbilirubinemia improved with resuscitation. (6) Elevated troponin I level: Plan: High-sensitivity troponin: 134.7 EKG: Sinus tachycardia, no acute ST elevation noted May be secondary to demand in setting of sepsis. Pt has had no chest pain or ACS symptoms this admission. (7) Fecal impaction: Plan: History of chronic constipation CT abdomen pelvis: Significant constipation with fecal retention of rectum ?Reported diarrhea may be secondary to overflow from constipation GI helping with management of this. Cont enema PRN. Clear liquid diet. On mag citrate. Encouraged to ambulate frequently. DVT Prophylaxis Heparin SQ Full Dispo-to floor and continue to encourage ambulation to help with constipation. Admission and Anticipated Discharge Date Admission Date: May 20, 2022 Subjective Patient seen and examined at bedside as a follow-up of sepsis, circulatory shock, RAMON, elevated LFT, fecal impaction. Patient was sitting up in bed, on room air, NAD, has not had bowel movement, only likely overflow from constipation, KUB x-ray with redemonstration of fecal impaction, patient not drinking any GoLytely solution, denies any headache or dizziness or chest pain or belly pain or other review of symptoms. Reports p assing gas. Physical Exam Physical Exam: GENERAL: Alert and oriented x3. NAD, on RA. HEENT: No pallor, no icterus. Pupils equal, round and reactive to light. Oral mucosa moist. NECK: No JVD, no neck masses. HEART: S1 and S2 heard. Regular rate and rhythm. No murmur, no gallop. RESPIRATORY SYSTEM: Normal AP diameter. No accessory muscle use. No wheezing, no crackles. ABDOMEN: Soft, bowel sounds present, nontender, no distention. CENTRAL NERVOUS SYSTEM: No facial droop. Speech is clear. Obeys simple commands. Moves extremities. EXTREMITIES: No edema, no erythema seen. Results & Data Results & Data ([facility]) Vital Signs (Past 12 Hours) Vital Signs Temp Pulse Resp BP BP Pulse Ox O2 Del Method 05/25/22 15:21 36.5 C 65 17 100/64 97 Room Air 05/25/22 07:20 36.8 C 71 18 96/61 L 97 Room Air (1) UTI (urinary tract infection) Hematuria presence: without hematuria Urinary tract infection type: site unspecified Qualified Code(s): N39.0 - Urinary tract infection, site not spec ified
[2022-05-25] MEDS ORDERED: LACTULOSE 200GM/700ML WTR ENEMA PR ONE (19:00)
[2022-05-26] MEDS: metroNIDAZOLE 500 MG/100 ML BAG IV SCH ×3 (00:15→17:17)
[2022-05-26 06:28] LABS: Hematocrit (blood only) 41.6 % (40.1-51.0); Hemoglobin 14.6 g/dl (14.0-18.0); Mean Corpuscular Hemoglobin 32.3 pg (25.0-34.0); Mean Corpuscular Hgb Conc 35.1 g/dL (32.0-36.0); Mean Platelet Volume 11.5 fL (9.4-12.4); Platelet Count 177 K/uL (130-400); RDW Coefficient of Variation 12.4 % (11.5-14.5); RDW Standard Deviation 41.6 fL (36.4-46.3); Red Blood Count 4.52 M/uL (4.63-6.08); White Blood Count 11.75 K/ul (4.8-10.8)
[2022-05-26 06:48] LABS: BUN Creatinine Ratio 11.8 (10-20); Calcium 8.7 mg/dl (8.5-10.1); Creatinine Clr Calc Pharmacy 85.6 ml/min; Est GFR (African American) 122.1 ml/min; Est GFR (Non-African American) 105.3 ml/min; Phosphorus 3.5 mg/dl (2.5-4.9); Potassium 4.4 mmol/L (3.5-5.1)
[2022-05-26] MEDS: HEPARIN SOD 5,000 UNIT/0.5 ML VIAL SQ SCH ×2 (08:06→20:02)
--- NOTE | 2022-05-26 14:55 | Gastroenterology Progress Note ---
Date of Service May 26, 2022 Assessment & Plan (1) Fecal impaction: Plan: KUB still shows impaction. He needs to take the laxative or he will need digital disimpaction which he won't like. I think the enemas combined with drinking the colyte may work but he isn't really doing what I have asked him. I am going off service tomorrow so I will sign off. If GI services needed again please reconsult. Admission and Anticipated Discharge Date Admission Date: May 20, 2022 Subjective Still hasn't consumed much colyte. Tells me he got a "large enema" today so wants to know if he can just drink a little. I explained to him that colyte was a volume laxative and didn't work with just a small amount. I also told him that enemas and the colyte together may do the trick Results & Data ([facility]) Vital Signs (Past 12 Hours) Vital Signs Temp Pulse Resp BP Pulse Ox O2 Del Method 05/26/22 08:22 36.6 C 61 18 103/57 L 99 Room Air
[2022-05-26] MEDS: cefTRIAXone SODIUM 2,000 MG in DEXTROSE 5% 50 ML IV SCH (15:20)
--- NOTE | 2022-05-26 15:23 | Hospitalist Progress Note ---
Date of Service May 26, 2022 Assessment & Plan (1) Sepsis: (2) UTI (urinary tract infection): (3) Shock circulatory: Plan: 21 y/o M with PMH ADHD, chronic constipation presented to ER with c/o N/V/D x 1 day. Patient stated that it started with nausea, vomiting and diarrhea 1 day prior. Denied any vomiting on the day of arrival. On the day of arrival, pt was lethargic and weak, chills. In ER patient hypotensive and tachycardic and was reported to be mottled. Was given 2L LR and 2L NSS with SBPs reported down to 50s and was started on Levophed with SBPs up to 90's. WBC 21, lactate: 3.5, procalcitonin > 200 UA consistent with possible UTI. Negative SARS-CoV-2 NAAT. CXR: Mild interstitial thickening RLL. CT abdomen/pelvis: Constipation with marked fecal retention of rectum with associated stercoral proctitis. Urinary bladder wall thickening. Mild bilateral hydronephrosis, no urolith. No CT evidence of acute appendicitis. Hyperattenuating material within the gallbladder with equivocal gallbladder wall thickening. In ER patient BP improving on Levophed, Vasopressin added in ICU Urine culture grew E coli Continued on Zosyn now deescalated to ceftriaxone and metronidazole GI on board for fecal impaction (4) Fecal impaction: Plan: History of chronic constipation CT abdomen pelvis: Significant constipation with fecal retention of rectum ?Reported diarrhea may be secondary to overflow from constipation GI helping with management of this. Reports increased activity Encouraged patient to finish golytely. He stated will try to finish the rest of it with some diet coke for taste. Diet advanced per patient's request and no symptoms of obstruction (5) RAMON (acute kidney injury): Plan: Pre-renal azotemia in sepsis. Resolved to baseline after resuscitation. Monitor renal function (6) Elevated LFTs: Plan: Likely related to shock Resolved Hyperbilirubinemia improved with resuscitation. (7) Elevated troponin I level: Plan: High-sensitivity troponin: 134.7 EKG: Sinus tachycardia, no acute ST elevation noted May be secondary to demand in setting of sepsis. Pt has had no chest pain or ACS symptoms this admission. DVT Prophylaxis Heparin SQ Full Admission and Anticipated Discharge Date Admission Date: May 20, 2022 Subjective Patient seen and examined. Denies any nausea, abdominal pain, fevers, chills Denied cough, chest pain, shortness of breath With swelling better. Denies dysuria, frequency, urgency, hematuria. Still not having much bowel movements. Patient has not been drinking much of the GoLTrue Style gallon at bedside over the past couple of days Reported he had a small BM after lactulose enema yesterday Physical Exam Constitutional: + well hydrated; no acute distress Eyes: PERRL, conjunctivae normal, anicteric sclerae ENMT: external ear and nose normal, oropharynx normal Respiratory: normal respiratory effort, lungs clear to auscultation Cardiovascular: Rate/Rhythm: regular rate and regular rhythm S1 S2 Gastrointestinal (Abdomen): normal bowel sounds, soft, nontender, no hepatosplenomegaly Musculoskeletal: no cyanosis or clubbing, extremities motor strength 5/5 Neurologic: PERRL, EOMI, accommodation nl, no face palsy, no dysarthria Psychiatric: A+Ox3, euthymic affect Results & Data Results & Data ([facility]) Vital Signs (Past 12 Hours) Vital Signs Temp Pulse Resp BP Pulse Ox O2 Del Method 05/26/22 08:22 36.6 C 61 18 103/57 L 99 Room Air Laboratory Results Abnormal lab results 05/26/22 Range/Units 05:55 WBC 11.75 H (4.8-10.8) K/ul RBC 4.52 L (4.63-6.08) M/uL (1) UTI (urinary tract infection) Hematuria presence: without hematuria Urinary tract infection type: site unspecified Qualified Code(s): N39.0 - Urinary tract infection, site not specified
[2022-05-26] MEDS ORDERED: LACTULOSE 200GM/700ML WTR ENEMA PR ONE (15:30)
[2022-05-27] MEDS: metroNIDAZOLE 500 MG/100 ML BAG IV SCH ×2 (01:10→10:09)
[2022-05-27 06:14] LABS: Hemoglobin 14.7 g/dl (14.0-18.0); Mean Corpuscular Hemoglobin 32.6 pg (25.0-34.0); Mean Corpuscular Volume 93.1 fL (80.0-100.0); Mean Platelet Volume 11.4 fL (9.4-12.4); Platelet Count 253 K/uL (130-400); RDW Coefficient of Variation 12.4 % (11.5-14.5); RDW Standard Deviation 42.4 fL (36.4-46.3); Red Blood Count 4.51 M/uL (4.63-6.08); White Blood Count 12.15 K/ul (4.8-10.8)
[2022-05-27 06:44] LABS: BUN Creatinine Ratio 15.2 (10-20); Calcium 8.7 mg/dl (8.5-10.1); Creatinine Clr Calc Pharmacy 84.8 ml/min; Est GFR (African American) 126.5 ml/min; Est GFR (Non-African American) 109.2 ml/min; Phosphorus 4.3 mg/dl (2.5-4.9); Potassium 3.8 mmol/L (3.5-5.1)
[2022-05-27] MEDS: HEPARIN SOD 5,000 UNIT/0.5 ML VIAL SQ SCH (10:09)
--- NOTE | 2022-05-27 13:32 | XRay Report ---
XR KUB/Abdomen 1 view CLINICAL HISTORY: Assess constipation TECHNIQUE: 1 view of the abdomen was obtained. Comparison: Comparison is made to abdomen radiograph 05/25/2022 FINDINGS: Lung bases are unremarkable. The osseous structures are grossly unremarkable. The bowel gas pattern i s nonobstructive. Stool burden has decreased in particular the previously noted rectal stool ball has significantly decreased. IMPRESSION: Previously noted rectal stool ball has significantly decreased, a minimal residual stool burden is se en. Nonobstructive bowel gas pattern. ACT 112: Negative or not required by law. Electronically signed by: Noble Vargas M.D. 05/27/2022 1:31 PM
--- NOTE | 2022-05-27 14:33 | Discharge Summary ---
Discharge Summary Date of Service May 27, 2022 Notes For Next Care Provider If patient's chronic constipation continues, refer to GI Medication Changes From Visit Continue miralax Advised to take this daily for next week before changing to prn Admission HPI Per Admitting Provider Patient is 21 y/o M with PMH ADHD, chronic constipation presented to ER with c/o N/V/D x 1 day. Patient states yesterday started with nausea, vomiting and diarrhea. Denies any vomiting today. Patient reports was feeling lethargic and weak. His mother is in room and reports that today he was lying on bathroom floor and looked ill so he was brought to ER. Patient reports history of chronic constipation and sometimes uses MiraLAX as needed. He reports his last BM prior to onset of illness yesterday was 2 to 3 days ago. Patient reports feeling cold and having chills. Did not take his temperature at home. Denies hematemesis, melena, hematochezia. Reports some diffuse abdominal discomfort. Patient states couple weeks ago had a cough but has resolved. Denies fever/chills, diaphoresis, VIERA, syncope, vision changes, neck pain, CP, SOB, orthopnea, palpitations, sore throat, choking, otalgia, rhinorrhea, extremity edema, rashes, urinary symptoms. Patient denies drug or alcohol use. Denies recent travel, ill contacts. In ER patient hypotensive and tachycardic and was reported to be mottled. Was given 2L LR and 2L NSS with SBPs reported down to 50s and was started on Levophed with SBPs up to 90's. WBC 21, lactate: 3.5, procalcitonin > 200, UA consistent with possible UTI. Negative SARS-CoV-2 NAAT. CXR: Mild interstitial thickening RLL. CT abdomen pelvis: Constipation with marked fecal retention of rectum with associated stercoral proctitis. Urinary bladder wall thickening. Mild bilateral hydronephrosis, no urolith. No CT evidence of acute appendicitis. Hyperattenuating material within the gallbladder with equivocal gallbladder wall thickening. Patient admitted to ICU. Admission Exam Per Admitting Provider General: +ill appearing young male, WDWN Head: normocephalic, atraumatic Eyes: PERRL, EOM's intact, conjunctiva non-injected, anicteric ENT: normal inspection external ears, nose, mucous membranes dry Neck: supple, trachea midline, non-tender Lungs: clear, no respiratory distress, no wheezing/rhonchi/rales CV: regular rhythm, tachycardia, no murmur, no pretibial edema Abd: normal BS, soft, diffuse tenderness to abdomen without rebound or guarding Ext: +purple discoloration of bilateral hands and feet, no calf tenderness Neuro: A&O x 3, no focal deficits noted, normal affect Skin: warm, dry Principal Dx & Hospital Course #1 = Principal Diagnosis (1) Sepsis: (2) UTI (urinary tract infection): (3) Shock circulatory: 21 y/o M with PMH ADHD, chronic constipation presented to ER with c/o N/V/D x 1 day. Patient stated that it started with nausea, vomiting and diarrhea 1 day prior. Denied any vomiting on the day of arrival. On the day of arrival, pt was lethargic and weak, chills. In ER patient hypotensive and tachycardic and was reported to be mottled. Was given 2L LR and 2L NSS with SBPs reported down to 50s and was started on Levophed with SBPs up to 90's. WBC 21, lactate: 3.5, procalcitonin > 200 UA consistent with possible UTI. Negative SARS-CoV-2 NAAT. CXR: Mild interstitial thickening RLL. CT abdomen/pelvis: Constipation with marked fecal retention of rectum with associated stercoral proctitis. Urinary bladder wall thickening. Mild bilateral hydronephrosis, no urolith. No CT evidence of acute appendicitis. Hyperattenuating material within the gallbladder with equivocal gallbladder wall thickening. In ER patient BP improved on Levophed. He was admitted to ICU Required pressors in ICU Urine culture grew E coli Blood cultures were negative Shock resolved Continued on Zosyn now deescalated to ceftriaxone and metronidazole Completed 7 days of antibiotic therapy (4) Fecal impaction: History of chronic constipation CT abdomen pelvis: Significant constipation with fecal retention of rectum ?Reported diarrhea may be secondary to overflow from constipation GI evaluated and aided with management. Required golytely and enema to aid with management KUB today noted previously noted stool ball ahs significantly decreased (5) RAMON (acute kidney injury): Pre-renal azotemia in sepsis. Resolved to baseline after resuscitation. (6) Elevated LFTs: Likely related to shock Resolved Hyperbilirubinemia improved with resuscitation. (7) Elevated troponin I level: High-sensitivity troponin: 134.7 EKG: Sinus tachycardia, no acute ST elevation noted May be secondary to demand in setting of sepsis. Pt has had no chest pain or ACS symptoms this admission. Discharge Exam Constitutional + well hydrated; no acute distress Eyes PERRL, conjunctivae normal, anicteric sclerae ENMT external ear and nose normal, oropharynx normal Respiratory normal respiratory effort, lungs clear to auscultation Cardiovascular Rate/Rhythm: regular rate and regular rhythm S1 S2 Gastrointestinal (Abdomen) normal bowel sounds, soft, nontender, no hepatosplenomegaly Musculoskeletal no cyanosis or clubbing, extremities motor strength 5/5 Neurologic PERRL, EOMI, accommodation nl, no face palsy, no dysarthria Psychiatric A+Ox3, euthymic affect Updated Medication List Medication Instructions Recorded Confirmed Type polyethylene glycol 3350 17 gram 17 g PO DAILY PRN Constipation 05/20/22 05/20/22 History oral powder packet (Miralax) Hospital Stay Data Consultations 05/20/22 16:12 ED Decision to Admit Stat 05/20/22 18:30 Consult Big Data Admin Routine 05/22/22 07:08 Consult Gastroenterology Routine Diagnostic Imagining Performed 05/20/22 15:16 CT abd pelvis wo con Stat Mild dependent subsegmental bibasilar atelectasis. No pneumatosis or pneumoperitoneum identified. The unenhanced spleen, pancreas and adrenal glands are unremarkable. Hyperdense material is noted within the gallbladder lumen. Equivocal gallbladder wall thickening without distention. The unenhanced liver is within normal limits. Mild bilateral hydroureter ureteronephrosis. No renal or ureteral calculi. Anteriorly displaced urinary bladder with circumferential wall thickening. The prostate measures within the upper limits of normal in size. Aorta and IVC are unremarkable. No lymphadenopathy identified. There is a large stool ball within the rectum measuring over 15 cm in length. The rectum is dilated and distended measuring up to 11 cm transversely. Circumferential wall thickening of the sigmoid and rectum with perirectal inflammatory stranding. Colonic fecal retention. There is a subcentimeter appendicolith present. No appendiceal dilation identified to suggest acute appendicitis. Scattered small bowel air-fluid levels within nondilated dilated loops are likely physiologic. Unremarkable soft tissues. Benign cystic structure of the L5 vertebral body. No acute fracture. IMPRESSION: 1. Constipation with marked fecal retention of the rectum resulting in associated stercoral proctitis. 2. The urinary bladder is displaced anteriorly. Circumferential wall thickening may represent cystitis. Correlate with urinalysis. 3. Mild bilateral hydronephrosis. No urolith. 4. Subcentimeter appendicolith is present. No CT evidence of acute appendicitis. 5. Hyperattenuating material within the gallbladder with equivocal gallbladder wall thickening. Findings could be correlated with ultrasound. 6. Additional findings as above. 05/21/22 08:26 US point of care ultrasound Urgent Pending Results Patient Have Any Pending Studies at Discharge: No Discharge Instructions Given to Patient (Per Discharging Provider) Mr Carson. You came to the hospital with nausea, vomiting, diarrhea. You were found to be lethargic. You were managed for septic shock and was admitted to ICU. You also had acute kidney injury and elevated liver enzymes Evaluation revealed urinary tract infection. You completed antibiotics treatment inpatient. You were treated and your symptoms resolved. Your acute kidney injury resolved and liver enzymes normalized. You had fecal impaction which was managed and improved. However, continue daily miralax for the next week before switching to prn miralax as you have been doing. Please follow up with your Primary Doctor. It was a pleasure taking care of you. Total Time Total Time Spent Total Time Spent (In Minutes): 50 Total Time Includes: Examination of the Patient, Discharge Planning, Medication Reconciliation and Other (Communication with mother)
[2022-05-27 20:17] LABS: % Cryocrit DNR; Complement C3 50 mg/dL (82-185); Complement Total(CH50) 32 U/mL (31-60); Cryoglobulin, QL Negative (Negative)
[2022-06-02 19:35] LABS: Anti Nuclear Antibody Screen NEGATIVE (NEGATIVE); Anti-Centromere Ab <1.0 NEG AI (<1.0 NEG); Anti-SS-A <1.0 NEG AI (<1.0 NEG); Anti-SS-B <1.0 NEG AI (<1.0 NEG); Complement C3 44 mg/dL (82-185); Cyclic Citrullinated Pep IgG <16 UNITS; DNA ds Crithidia NEGATIVE (NEGATIVE); RNP Antibody <1.0 NEG AI (<1.0 NEG); Rheumatoid Factor <14 IU/mL (<14); Scleroderma Anti Scl-70 Ab <1.0 NEG AI (<1.0 NEG); Sm Antibody <1.0 NEG AI (<1.0 NEG)
== END 2022-05-27 15:30 | disposition home or self-care (01) | DRG 871 ==
LOC: ED 13:04 → 1E 16:57 → SUATTDRO 16:57 → 1E 18:02 → 4W 05-22 18:49
DX: N17.0 Acute kidney failure with tubular necrosis; R65.21 Severe sepsis with septic shock; Z91.19 Patient's noncompliance with other medical treatment and regimen; Z88.2 Allergy status to sulfonamides; Z20.822 Contact with and (suspected) exposure to COVID-19; R57.8 Other shock; L98.8 Other specified disorders of the skin and subcutaneous tissue; N13.30 Unspecified hydronephrosis; K52.9 Noninfective gastroenteritis and colitis, unspecified; Q43.1 Hirschsprung's disease; N39.0 Urinary tract infection, site not specified; K56.41 Fecal impaction; D69.59 Other secondary thrombocytopenia; F17.290 Nicotine dependence, other tobacco product, uncomplicated; R74.01 Elevation of levels of liver transaminase levels; E87.2 Acidosis; I24.8 Other forms of acute ischemic heart disease; E86.0 Dehydration; A41.51 Sepsis due to Escherichia coli [E. coli]